=== PATIENT | male | born 1950 | race Caucasian/White ===

== ENCOUNTER → 2017-06-20 | Outpatient (REF) ==
--- NOTE | 2017-06-20 11:59 | REP ---
Chest x-ray: Two views. History: Shortness of breath. COPD. Comparison chest x-ray February 17, 2014. Findings: The lungs are well inflated and remain clear. Pleural angles are sharp. Heart is not enlarged. Aorta is calcific. Pulmonary vasculature is not increased. Left hemidiaphragm remains slightly elevated. There is diffuse osteopenia and mild anterior thoracic vertebral body wedging is seen at three vertebral body levels unchanged. Impression: No active cardiopulmonary disease seen. Signed by Ezra Nichols MD 06/20/2017 12:11 P
== END ==
LOC: M RAD 10:30
PROVIDERS: ATTEND Family Medicine
DX: R06.02 Shortness of breath (principal); J44.9 Chronic obstructive pulmonary disease, unspecified

== ENCOUNTER 2019-04-25 13:47 | Emergency (ER) | payer MEDICARE, OTHER ==
[~2019-04-25] VITALS: Ht 180.3 cm; Wt 91.2 kg
[2019-04-25] MEDS ORDERED: ATOR1TAB21 PO (13:58)
[2019-04-25] MEDS ORDERED: CARD120T4 PO (13:58)
[2019-04-25] MEDS ORDERED: METO200T28 PO (13:58)
[2019-04-25] MEDS ORDERED: DIPH25CA32 PO (14:18)
[2019-04-25] MEDS ORDERED: CLAR10CA3 PO (14:18)
[2019-04-25] MEDS ORDERED: PROAAER10 INH (14:18)
[2019-04-25] MEDS ORDERED: LISI40TA PO (14:18)
[2019-04-25] MEDS ORDERED: FUROSEMIDE 40 MG/4 ML VIAL (J1940) IV ONE (15:15)
[2019-04-25 15:23] LABS: BASO % 0.4 % (0.0-1.0); EOS # 0.5 10^3/uL (0.0-0.50); EOS % 4.4 % (0.0-3.0); HEMOGLOBIN 12.3 g/dl (13.5-17.5); LYMPH # 1.1 10^3/uL (1.5-4.5); LYMPH % 10.2 % (24.0-44.0); MEAN CORPUSCULAR HEMOGLOBIN 31.8 pg (27.0-33.0); MEAN CORPUSCULAR HGB CONC 34.2 g/dl (32.0-36.5); MONO # 1.6 10^3/uL (0.0-0.8); MONO % 14.8 % (0.0-5.0); NEUTROPHILS # 7.6 10^3/uL (1.8-7.7); NEUTROPHILS % 69.5 % (36.0-66.0); PLATELET COUNT, AUTOMATED 388 10^3/uL (150-450); RED BLOOD COUNT 3.87 10^6/uL (4.30-6.10); WHITE BLOOD COUNT 10.9 10^3/uL (4.0-10.0)
[2019-04-25 15:26] LABS: ALBUMIN 3.8 GM/DL (3.2-5.2); ALT/SGPT 22 U/L (12-78); BILIRUBIN,DIRECT 0.2 MG/DL (0.0-0.2); BILIRUBIN,TOTAL 0.4 MG/DL (0.2-1.0); BLOOD UREA NITROGEN 6 MG/DL (7-18); CALCIUM LEVEL 9.4 MG/DL (8.8-10.2); CARBON DIOXIDE LEVEL 29 MEQ/L (21-32); CHLORIDE LEVEL 88 MEQ/L (98-107); CK-MB VALUE MASS 4.9 NG/ML (<3.6); CPK CREATINE PHOSPHOKINASE 124 U/L (39-308); CREATININE FOR GFR 0.88 MG/DL (0.70-1.30); GLOMERULAR FILTRATION RATE > 60.0 (>49); GLUCOSE, FASTING 97 MG/DL (70-100); LIPASE 107 U/L (73-393); MB/CK RELATIVE INDEX 3.95 (< OR =4); NT-PRO BNP 477 PG/ML (<125); POTASSIUM SERUM 4.2 MEQ/L (3.5-5.1); SODIUM LEVEL 126 MEQ/L (136-145); TOTAL PROTEIN 6.9 GM/DL (6.4-8.2); TROPONIN I < 0.02 NG/ML (< 0.10)
[2019-04-25 15:29] LABS: PARTIAL THROMBOPLASTIN TIME 33.4 SECONDS (25.0-38.4)
[2019-04-25 15:36] LABS: INR 1.14; PROTHROMBIN TIME 14.3 SECONDS (11.8-14.0)
--- NOTE | 2019-04-25 16:08 | REP ---
Portable chest, 03:49 p.m., single AP view with the patient upright: Comparison is 06/20/2017. The lung saucedo are hyperinflated, as previously. There are no infiltrates or pleural effusions. There are no masses or nodules. The lung saucedo are clear and unchanged. Cardiac size is normal. The carlitos, mediastinum, skeletal structures are unremarkable. Impression: Negative portable chest. Electronically Signed by Tyshawn Reddy MD 04/25/2019 03:59 P
[2019-04-25] MEDS ORDERED: LABETALOL HCL 100 MG/20 ML VIAL IV STA (16:30)
--- NOTE | 2019-04-25 16:55 | REP ---
Bilateral lower extremity Duplex Doppler venous ultrasound: Real time compression and duplex Doppler interrogation of the bilateral lower extremity deep venous system is performed. Bilaterally, the common femoral, superficial femoral and popliteal veins are fully compressible with transducer pressure and demonstrate normal spontaneous and phasic flow, without evidence of deep venous thrombosis. Impression: No evidence of deep venous thrombosis of the bilateral lower extremity femoral popliteal venous system. Note is made of a left popliteal cyst 5.0 x 4.6 x 1.2 cm. Electronically Signed by Tyshawn Gunderson MD 04/25/2019 04:46 P
[2019-04-25] MEDS ORDERED: HYDR12.55 PO (17:39)
[2019-04-25 17:46] VITALS: BP 166/76
--- NOTE | 2019-04-26 09:34 | ECGEPIP ---
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
== END 2019-04-25 18:09 | disposition home or self-care (01) ==
LOC: M ED 13:47
DX: R60.0 Localized edema (principal); I45.10 Unspecified right bundle-branch block; I10 Essential (primary) hypertension; E78.5 Hyperlipidemia, unspecified; Z79.899 Other long term (current) drug therapy; Z87.891 Personal history of nicotine dependence
CPT/HCPCS: 36415; 71045; 80048; 80076; 82550; 82553; 83690; 83880; 84484; 85025; 85610; 85730; 93005; 93041; 93970; 94760; 96374; 96375; 99285; J1940

== ENCOUNTER 2020-02-28 15:53 | Inpatient (IN) | payer OTHER, MEDICARE ==
[2020-02-28] VITALS (12 sets, daily range): BP systolic 72–168; BP diastolic 47–82
[~2020-02-28] VITALS: Ht 160 cm; Wt 78.3 kg
[~2020-02-28 15:53] MED LIST: ATOR1TAB21 PO; CARD120T4 PO; CLAR10CA3 PO; DIPH25CA32 PO; HYDR12.55 PO; LISI40TA PO; METO200T28 PO; PROAAER10 INH
[2020-02-28] MEDS ORDERED: HYDR12.55 PO (19:16)
[2020-02-28] MEDS ORDERED: ATOR1TAB21 PO (19:16)
[2020-02-28] MEDS ORDERED: SYMB16INH INH (19:17)
[2020-02-28] MEDS ORDERED: BENA25CA4 PO (19:21)
[2020-02-28] MEDS ORDERED: CARD360C PO (19:21)
[2020-02-28] MEDS ORDERED: LORA-622 PO (19:21)
[2020-02-28 19:24] LABS: HEMATOCRIT 31.7 % (42.0-52.0); HEMOGLOBIN 11.5 g/dl (13.5-17.5); MEAN CORPUSCULAR HEMOGLOBIN 32.2 pg (27.0-33.0); MEAN CORPUSCULAR HGB CONC 36.3 g/dl (32.0-36.5); MEAN CORPUSCULAR VOLUME 88.8 fl (80.0-96.0); PLATELET COUNT, AUTOMATED 336 10^3/uL (150-450); RED BLOOD COUNT 3.57 10^6/uL (4.30-6.10); WHITE BLOOD COUNT 13.9 10^3/uL (4.0-10.0)
[2020-02-28] MEDS ORDERED: LORazepam 2 MG/ML VIAL (J2060) IV STA (19:45)
[2020-02-28] MEDS ORDERED: LORazepam 2 MG/ML VIAL (J2060) As Ordered ONE (19:49)
[2020-02-28] MEDS ORDERED: ACETAMINOPHEN TAB 650MG DOSE (2X325MG) PO PRN (20:00)
[2020-02-28] MEDS ORDERED: KCL 10MEQ/100ML SWI (KRUN) 10 MEQ in IV 1 EA IV SCH (20:00)
[2020-02-28 20:10] LABS: ALBUMIN 3.3 GM/DL (3.2-5.2); BILIRUBIN,TOTAL 0.7 MG/DL (0.2-1.0); CALCIUM LEVEL 8.9 MG/DL (8.8-10.2); CREATININE FOR GFR 1.73 MG/DL (0.70-1.30); GLOMERULAR FILTRATION RATE 42.2 (>49); POTASSIUM SERUM 3.1 MEQ/L (3.5-5.1); THYROID STIMULATING HORMONE 0.404 uIU/ML (0.358-3.740); TOTAL PROTEIN 6.3 GM/DL (6.4-8.2); URIC ACID 6.6 MG/DL (3.5-7.2)
[2020-02-28] MEDS ORDERED: LORazepam 2 MG TAB PO PRN (20:15)
[2020-02-28] MEDS ORDERED: IPRATROPIUM 0.5MG/ALBUTEROL 2.5MG INH SOL UD 3ML (DUONEB)(J7620) NEB PRN (20:15)
[2020-02-28] MEDS ORDERED: LORazepam 2 MG/ML VIAL (J2060) IV PRN (20:15)
[2020-02-28] MEDS ORDERED: NS 1,000 ML IV SCH (20:15)
--- NOTE | 2020-02-28 20:30 | REPVR ---
PROCEDURE INFORMATION: Exam: US Duplex Lower Extremity Veins, Bilateral Exam date and time: 02/28/2020 8:24 PM Age: 69 years old Clinical indication: Edema, localized; Lower extremity, bilateral; Additional info: Bilat pedal edema TECHNIQUE: Imaging protocol: Real-time duplex ultrasound of the extremities with 2-D miller scale, color Doppler flow and spectral waveform analysis with image documentation. Complete exam focused on the bilateral lower extremity veins. COMPARISON: US Duplex, Ext LOWER veins, bilat 04/25/2019 4:00 PM FINDINGS: Right deep veins: Unremarkable. The common femoral, femoral, proximal profunda femoral and popliteal veins are patent without thrombus. Normal Doppler waveforms. Normal compressibility and/or augmentation response. Right superficial veins: Saphenofemoral junction is patent without thrombus. Left deep veins: Unremarkable. The common femoral, femoral, proximal profunda femoral and popliteal veins are patent without thrombus. Normal Doppler waveforms. Normal compressibility and/or augmentation response. Left superficial veins: Saphenofemoral junction is patent without thrombus. Soft tissues: Dissecting popliteal fossa cyst measures 9.1 x 1.3 x 2.3 cm. IMPRESSION: Dissecting popliteal fossa cyst measures 9.1 x 1.3 x 2.3 cm. No DVT. The Electronically signed by: Eric Reed On 02/28/2020 20:30:10 PM
--- NOTE | 2020-02-28 20:39 | HPEPDOC ---
General Date of Admission February 28, 2020 at 18:10 Date of Service: February 28, 2020 Chief Complaint The patient is a 69-year-old male admitted with a reason for visit of Hyponatremia,Pneumonia. Source: RN/MD, EMS, RN notes reviewed, Other ([facility] records) Timing/Duration: Other (2 weeks) Severity: Other (, not applicable) Associated Symptoms: Other History of Present Illness 69 years old white male who lives alone, has a past medical history of COPD and hypertension. Last time was seen by his PCP in March 2019. Her bilateral leg swelling, not followed up with PCP since then, was brought in to ED at [facility] by by his son with chief complaint of altered mental status, which is progressively getting worse since last 2 weeks. I'm unable to get good history from patient as he is confused, history was obtained from RN medical records from [facility] in reviewing his old medical records available in our EMR. Home Medications Scheduled Atorvastatin Calcium (Atorvastatin Calcium) 20 Mg Tablet, 20 MG PO QHS, (Reported) Budesonide/Formoterol (Symbicort 160-4.5 Mcg Inhaler) 6 Gm Hfa.aer.ad, 2 PUFF INH BID, (Reported) Diltiazem Hcl (Cardizem Cd) 360 Mg Cap.er.24h, 360 MG PO DAILY, (Reported) Diphenhydramine HCl (Benadryl) 25 Mg Capsule, 25 MG PO ASDIRECTED, (Reported) Hydrochlorothiazide (Hydrochlorothiazide) 12.5 Mg Tablet, 12.5 MG PO DAILY, (Reported) Lisinopril (Lisinopril) 40 Mg Tablet, 40 MG PO DAILY, (Reported) Loratadine (Loratadine) 10 Mg Tablet, 10 MG PO DAILY, (Reported) Metoprolol Succinate (Metoprolol Succinate) 200 Mg Tab.er.24h, 200 MG PO DAILY, (Reported) Scheduled PRN Albuterol Sulfate (Proair Hfa) 8.5 Gm Hfa.aer.ad, 2 PUFF INH Q4-6HP PRN for whe ezing, (Reported) Allergies Coded Allergies: latex (Verified Allergy, Unknown, 02/28/20) Past Medical History Medical History COPD, hypertension, bipedal edema Surgical History None available Family History Unable to obtained. Family history. Secondary to his mental status Social History * Smoker: former Smoker Alcohol: other (. History of regular alcohol use ) Drugs: other (, on no) A-FIB/CHADSVASC A-FIB History Current/History of A-Fib/PAF?: No Review of Systems Constitutional: Reports: Other (unable to obtained review of systems secondary to patient's confusion and altered mentation) Physical Examination General Exam: Positive: Other (, awake response to some questions", but has echolalia" just say yes") Eye Exam: Positive: Conjunctiva & lids normal, Other Eye Symptoms (dilated bilaterally. Pupils) ENT Exam: Positive: Atraumatic, Mucous membr. moist/pink Neck Exam: Positive: Supple Chest Exam: Positive: Clear to auscultation, Normal air movement, Other (rales, rhonchi, wheezing) Heart Exam: Positive: Rate Normal, Normal S1, Normal S2 Abdomen Exam: Positive: Normal bowel sounds, Soft Extremity Exam: Positive: Other (bilateral pedal edema) Skin Exam: Positive: Other skin issue (, cold, but not clammy) Neuro Exam: Positive: Other (. Moves all extremities) Psych Exam: Positive: Other (. Unable to examine) Vital Signs Vital Signs Date Time Temp Pulse Resp B/P (MAP) Pulse Ox O2 Delivery O2 Flow Rate FiO2 02/28/20 18:30 96.7 91 18 168/82 (110) 96 Room Air Laboratory Data Labs 24H Laboratory Tests 2 02/28/20 18:51: Coronavirus (COVID-19)(PCR) NEGATIVE 02/28/20 19:05: 02/28/20 19:15: Nucleated Red Blood Cells % (auto) 0.0, Lactic Acid Level 1.8 CBC/BMP Laboratory Tests 02/28/20 19:15 Microbiology Microbiology 02/28/20 Blood Culture, Received Pending 02/28/20 Blood Culture, Received Pending 02/28/20 Respiratory Virus Panel (PCR) ([facility]), Received Pending Problems (1) Metabolic encephalopathy Status: Acute Problem Text: 69 years old white male who is pleasantly confused, was transferred from [facility] with altered mental status. Altered mental status secondary to metabolic encephalopathy, most likely secondary to hyponatremia and possibly alcohol withdrawal. Patient has been admitted to intensive care unit for further care Will start patient on normal saline at 70 mL per hour to gently raise sodium levels to 10 mEq and first 24 hours Nephrology consult with Dr. Bess also has been requested for further recommendations I will also hold patient's hydrochlorothiazide, ERIK inhibitor and calcium channel blockers Catherine catheter placed in for accurate intake and output measurement Patient had a CT of the head done at [facility], which was essentially showed age-related changes Bed rest Nothing by mouth except meds and sips of water DVT prophylaxis with heparin BMP every 6 hours (2) Hyponatremia Status: Acute Problem Text: Patient's etiology of the hyponatremia is unclear but most likely secondary to diuretics and possibly alcohol abuse Repeat his sodium level has been ordered and awaiting reports also repeat potassium level has been ordered and awaiting report Normal saline at 70 mL per hour Nothing by mouth except meds and water sips until his mental status is acceptable Nephrology consult has been called and awaiting further recommendations (3) Alcohol withdrawal delirium Status: Acute Problem Text: Questionable history of alcohol abuse [place] patient directly asked, he is unable to give me an answer . His alcohol level VIII [facility] was 0, so most likely he is going through withdrawal at the present time Ativan 2 mg IV stat. Given CIWA protocol has been ordered Ativan 1 mg IV every 4 hours when necessary for agitation IV fluids as per orders Time and folic acid as per orders Possibly will need a social work intervention when she is medically stable for discharge planning (4) Edema of both lower extremities Status: Chronic Problem Text: History of bilateral lower extremity edema since last 1 year . He saw his PCP in March 2019 had a venous Dopplers done which were negative for DVT but no other intervention was performed , Most likely bipedal edema secondary to chronic use of calcium channel blockers. Cardizem has been DC'd and I will repeat bilateral venous Dopplers to rule out D VT Again Echocardiogram has been ordered to assess cardiac structures and ejection fraction DVT prophylaxis with heparin right now (5) Atypical pneumonia Status: Acute Problem Text: Patient was diagnosed with atypical pneumonia at [facility] where he received Rocephin and Zithromax and he was started on Zosyn at [facility] After physical examination. In reviewing his labs from [facility] is very unlikely that patient has an active infection Chest x-ray at [facility] showed most likely atelectasis. His lungs are clear. He is afebrile and WBC count was within normal range . I will hold his IV antibiotics and repeat chest x-ray again as well as order pro calcitonin, if any, pneumonia, noted, will restart him on IV antibiotics. DuoNeb every 2-4 hours when necessary and oxygen support as needed (6) COPD (chronic obstructive pulmonary disease) Status: Chronic Problem Text: Stable, not decompensated DuoNeb as per orders (7) HTN (hypertension) Status: Chronic Problem Text: Will DC patient's calcium channel blockers, ERIK inhibitor and diuretics Will change beta blockers to Lopressor 5 mg IV every 6 hours for blood pressure control to patient's mental status is acceptable Will also avoid diuretics such as hydrochlorothiazide and ERIK inhibitor such as lisinopril due to electrolyte abnormalities Also would avoid calcium channel blockers such as Cardizem secondary to bipedal edema Continue beta blockers and will switch him back to by mouth once his mentation is acceptable (8) Elevated LFTs Status: Acute Problem Text: AST is 3 times higher than ALT, most likely alcohol in liver i njury . His abdomen is benign on clinical examination, and his ammonia was within normal limits done at [facility] Will get abdominal sonogram to further assess the hepatic anatomy Plan / VTE VTE Prophylaxis Ordered?: Yes LULI BLAIR MD February 28, 2020 20:39
[2020-02-28] MEDS: PIPERACILLIN/TAZOBACTAM SOD 4.5 GM in D5W MINI-BAG PLUS 50 ML IV SCH (20:46)
[2020-02-28] MEDS: ATORVASTATIN 20 MG TAB PO SCH (20:47)
[2020-02-28] MEDS: METOPROLOL 5 MG/5 ML VIAL IV SCH (20:51)
[2020-02-28] MEDS: HEPARIN SOD (PORCINE) 5000UNITS/ML VIAL (J1644 PER 1000UNITS) SC SCH (20:51)
[2020-02-28] MEDS: THIAMINE 100 MG TAB PO SCH (20:52)
[2020-02-28] MEDS: KCL 40MEQ in NS 1000ML 1,000 ML IV SCH (21:25)
[2020-02-28 22:06] LABS: POTASSIUM RANDOM URINE 26.9 MEQ/L
[2020-02-29] VITALS (16 sets, daily range): BP systolic 90–146; BP diastolic 44–78
[2020-02-29 02:41] LABS: CALCIUM LEVEL 8.5 MG/DL (8.8-10.2); CREATININE FOR GFR 1.55 MG/DL (0.70-1.30); GLOMERULAR FILTRATION RATE 47.8 (>49); POTASSIUM SERUM 3.2 MEQ/L (3.5-5.1)
[2020-02-29] MEDS: PIPERACILLIN/TAZOBACTAM SOD 4.5 GM in D5W MINI-BAG PLUS 50 ML IV SCH ×4 (02:43→20:24)
[2020-02-29] MEDS: METOPROLOL 5 MG/5 ML VIAL IV SCH ×4 (02:43→20:30)
[2020-02-29] MEDS ORDERED: KCL 10MEQ/100ML SWI (KRUN) 10 MEQ in IV 1 EA IV ONE ×3 (03:45→20:00)
[2020-02-29 04:48] LABS: ABG BASE EXCESS 1.5 (-2.0-2.0); ABG HCO3 27.2 MEQ/L (22.0-26.0); ABG O2 SATURATION 98.8 % (95.0-99.0); ABG PARTIAL PRESSURE CO2 47.5 mmHg (35.0-45.0); ABG PARTIAL PRESSURE O2 132.2 mmHg (75.0-100.0); ABG STANDARD HCO3 25.9 MEQ/L (22.0-26.0); ABG TOTAL CO2 28.6 MEQ/L (23.0-31.0); ABG pH (ARTERIAL) 7.375 UNITS (7.350-7.450)
[2020-02-29] MEDS: SYMBICORT 160/4.5MCG INHALER 6GM INH SCH ×3 (06:48→20:00)
[2020-02-29 07:24] LABS: BASO % 0.3 % (0.0-1.0); EOS # 0.2 10^3/uL (0.0-0.5); EOS % 1.7 % (0.0-3.0); HEMOGLOBIN 10.5 g/dl (13.5-17.5); LYMPH # 0.7 10^3/uL (1.5-5.0); LYMPH % 7.4 % (24.0-44.0); MEAN CORPUSCULAR HEMOGLOBIN 32.5 pg (27.0-33.0); MEAN CORPUSCULAR HGB CONC 36.2 g/dl (32.0-36.5); MEAN CORPUSCULAR VOLUME 89.8 fl (80.0-96.0); MONO # 1.5 10^3/uL (0.0-0.8); MONO % 16.3 % (0.0-5.0); NEUTROPHILS # 6.6 10^3/uL (1.5-8.5); NEUTROPHILS % 72.9 % (36.0-66.0); PLATELET COUNT, AUTOMATED 295 10^3/uL (150-450); RED BLOOD COUNT 3.23 10^6/uL (4.30-6.10)
[2020-02-29 08:01] LABS: BILIRUBIN,TOTAL 0.7 MG/DL (0.2-1.0); CALCIUM LEVEL 8.8 MG/DL (8.8-10.2); CREATININE FOR GFR 1.5 MG/DL (0.70-1.30); GLOMERULAR FILTRATION RATE 49.7 (>49); MAGNESIUM LEVEL 1.9 MG/DL (1.8-2.4); POTASSIUM SERUM 3.4 MEQ/L (3.5-5.1); TOTAL PROTEIN 5.8 GM/DL (6.4-8.2)
[2020-02-29] MEDS: FOLIC ACID 1 MG TAB PO SCH (08:54)
[2020-02-29] MEDS: MULTIVITAMINS/MINERALS THERAP 1 TAB PO SCH (08:54)
[2020-02-29] MEDS: THIAMINE 100 MG TAB PO SCH ×2 (08:54→21:56)
[2020-02-29] MEDS: PANTOPRAZOLE 40MG TAB (PROTONIX) PO SCH (08:59)
[2020-02-29] MEDS ORDERED: METOPROLOL SUCC (TopROL XL) 100MG *XL* TAB PO SCH (09:00)
[2020-02-29] MEDS: HEPARIN SOD (PORCINE) 5000UNITS/ML VIAL (J1644 PER 1000UNITS) SC SCH ×2 (09:02→21:56)
--- NOTE | 2020-02-29 09:31 | REP ---
CHEST: Single view. There is no evidence of acute infiltrate. No pleural effusion is seen. The heart is normal in size. The mediastinal silhouette is unremarkable. The visualized osseous structures are intact. IMPRESSION: No acute pulmonary disease. Electronically Signed by Tyshawn Gunderson MD 02/29/2020 10:24 A
[2020-02-29 09:43] LABS: POTASSIUM RANDOM URINE 13.5 MEQ/L
--- NOTE | 2020-02-29 11:50 | IPNPDOC ---
Text Note Date of Service The patient was seen on 02/29/20. NOTE Subjective: Patient is lethargic in the morning. Not follows commands Objective: VITAL SIGNS: Please see below. GENERAL: lethargic HEENT: NCAT, anicteric sclera, ASHER NECK: supple, no JVD CARDIOVASCULAR EXAMINATION: S1S2, regular rate/rhythm RESPIRATORY EXAMINATION: CTA b/l, no wheezes/rales/rhonchi ABDOMINAL EXAMINATION: positive bowel sounds x 4, NT EXTREMITIES: +2 edema of lower extremities SKIN: warm, no rashes. NEUROLOGICAL EXAMINATION: reflexes intact, no nuchal rigidity Assessment and plan: Patient is 69 years old female with past history of COPD, hypertension, alcohol abuse who was admitted to the hospital with metabolic encephalopathy. Patient was found to have symptomatic hyponatremia. Metabolic encephalopathy Most likely secondary to hyponatremia, unknown etiology for now CT head negative Hyponatremia Unknown etiology Differential diagnosis includes SIADH, psychogenic polydipsia, endocrinopathies, CHF or renal failure We will check urine lites, urine osmolality Nephrology team follows patient Alcohol withdrawal Continue CIWA Edema of both extremities Echo ordered DVT of lower extremities negative Chest x-ray showed did not show cardiomegaly Will check BNP Hypertension Blood pressures under control Continue home meds Transaminitis AST>ALT most likely due to alcohol abuse Ultrasound of the liver ordered Continue to monitor VS,Fishbone, I+O VS, Fishbone, I+O Laboratory Tests 02/28/20 19:15 02/29/20 01:54 02/29/20 07:09 Vital Signs Date Time Temp Pulse Resp B/P (MAP) Pulse Ox O2 Delivery O2 Flow Rate FiO2 02/29/20 09:03 77 136/64 02/29/20 08:00 97.3 14 100 Nasal Cannula 2.0 I&O- Last 24 Hours up to 6 AM 02/29/20 06:00 Intake Total 760 ml Output Total 960 ml Balance -200 ml JAMES PIZANO DO February 29, 2020 11:50
[2020-02-29 14:52] LABS: CALCIUM LEVEL 8.4 MG/DL (8.8-10.2); CREATININE FOR GFR 1.38 MG/DL (0.70-1.30); GLOMERULAR FILTRATION RATE 54.7 (>49); POTASSIUM SERUM 3.3 MEQ/L (3.5-5.1)
[2020-02-29] MEDS: KCL 40MEQ in NS 1000ML 1,000 ML IV SCH (15:04)
--- NOTE | 2020-02-29 21:21 | REPVR ---
PROCEDURE INFORMATION: Exam: CT Head Without Contrast Exam date and time: 02/29/2020 9:04 PM Age: 69 years old Clinical indication: Weakness, facial; Additional info: Left facial droop TECHNIQUE: Imaging protocol: Computed tomography of the head without contrast. Radiation optimization: All CT scans at this facility use at least one of these dose optimization techniques: automated exposure control; mA and/or kV adjustment per patient size (includes targeted exams where dose is matched to clinical indication); or iterative reconstruction. Other technique: STROKE PROTOCOL was implemented. COMPARISON: No relevant prior studies available. FINDINGS: Brain: Mild nonspecific hypodensities of the periventricular and deep subcortical white matter, most likely secondary to chronic small vessel ischemic change. No intracranial hemorrhage or extra-axial fluid collection. No evidence of mass effect or midline shift. Gunderson-white matter differentiation is normal. Ventricles: Mild prominence of the ventricles and sulci, most likely attributed to parenchymal volume loss. Bones/joints: No acute osseus lesion or fracture. Sinuses: Unremarkable as visualized. Mastoid air cells: Unremarkable. Soft tissues: Unremarkable. IMPRESSION: 1. No acute intracranial pathology. ASPECTS score 10. 2. Other chronic findings, as above. Electronically signed by: Chaz Joshi On 02/29/2020 21:21:44 PM
[2020-02-29 21:47] LABS: ALBUMIN 2.8 GM/DL (3.2-5.2); CALCIUM LEVEL 8.7 MG/DL (8.8-10.2); CREATININE FOR GFR 1.28 MG/DL (0.70-1.30); CREATININE FOR GFR 1.36 MG/DL (0.70-1.30); GLOMERULAR FILTRATION RATE 55.6 (>49); GLOMERULAR FILTRATION RATE 59.7 (>49); PHOSPHORUS LEVEL 1.9 MG/DL (2.5-4.9); POTASSIUM SERUM 3.5 MEQ/L (3.5-5.1); POTASSIUM SERUM 3.6 MEQ/L (3.5-5.1)
[2020-02-29] MEDS: NYSTATIN 100,000 UNITS/GM TOPICAL PWD 15 GM TOP SCH (21:56)
[2020-02-29] MEDS: ATORVASTATIN 20 MG TAB PO SCH (21:56)
[2020-02-29] MEDS ORDERED: KCL 20MEQ IN 0.45NS 1000ML 1,000 ML IV SCH (22:00)
--- NOTE | 2020-02-29 23:05 | REP ---
RIGHT UPPER QUADRANT ULTRASOUND: Real-time sonographic evaluation of right upper quadrant performed. Gallbladder demonstrates mild sludge. Gallbladder wall is upper limits of normal in thickness. It measures 4 mm. There is no intrahepatic or extrahepatic biliary dilatation, common bile duct measuring 4 mm. The liver has heterogeneous echotexture with no gross mass. No gross mass is seen in the pancreas, which is not well seen due to overlying bowel gas. Right kidney demonstrates no hydronephrosis with normal size, 11.0 cm in length. No free fluid is seen. IMPRESSION: Heterogeneous echotexture of the liver. No liver mass is seen. No biliary dilatation. Mild gallbladder sludge. Electronically Signed by Tyshawn Gunderson MD 03/01/2020 01:13 P
[2020-03-01] VITALS (10 sets, daily range): BP systolic 127–142; BP diastolic 68–79
[2020-03-01] MEDS: PIPERACILLIN/TAZOBACTAM SOD 4.5 GM in D5W MINI-BAG PLUS 50 ML IV SCH (01:43)
[2020-03-01 02:27] LABS: BLOOD UREA NITROGEN 19 MG/DL (7-18); CALCIUM LEVEL 8.7 MG/DL (8.8-10.2); CARBON DIOXIDE LEVEL 30 MEQ/L (21-32); CHLORIDE LEVEL 85 MEQ/L (98-107); CREATININE FOR GFR 1.17 MG/DL (0.70-1.30); GLOMERULAR FILTRATION RATE > 60.0 (>49); GLUCOSE, FASTING 92 MG/DL (70-100); POTASSIUM SERUM 3.6 MEQ/L (3.5-5.1); SODIUM LEVEL 125 MEQ/L (136-145)
[2020-03-01] MEDS: METOPROLOL 5 MG/5 ML VIAL IV SCH ×4 (03:00→20:27)
[2020-03-01] MEDS: SYMBICORT 160/4.5MCG INHALER 6GM INH SCH ×2 (07:13→19:24)
[2020-03-01 08:22] LABS: BASO # 0.1 10^3/uL (0.0-0.2); BASO % 0.9 % (0.0-1.0); EOS # 0.7 10^3/uL (0.0-0.5); EOS % 7.1 % (0.0-3.0); HEMATOCRIT 30.7 % (42.0-52.0); HEMOGLOBIN 10.7 g/dl (13.5-17.5); LYMPH # 0.9 10^3/uL (1.5-5.0); LYMPH % 8.2 % (24.0-44.0); MEAN CORPUSCULAR HEMOGLOBIN 32.5 pg (27.0-33.0); MEAN CORPUSCULAR HGB CONC 34.9 g/dl (32.0-36.5); MEAN CORPUSCULAR VOLUME 93.3 fl (80.0-96.0); MONO # 1.7 10^3/uL (0.0-0.8); MONO % 16.5 % (0.0-5.0); NEUTROPHILS # 6.9 10^3/uL (1.5-8.5); NEUTROPHILS % 65.8 % (36.0-66.0); PLATELET COUNT, AUTOMATED 305 10^3/uL (150-450); RED BLOOD COUNT 3.29 10^6/uL (4.30-6.10); WHITE BLOOD COUNT 10.5 10^3/uL (4.0-10.0)
[2020-03-01 08:49] LABS: BLOOD UREA NITROGEN 17 MG/DL (7-18); CARBON DIOXIDE LEVEL 31 MEQ/L (21-32); CHLORIDE LEVEL 85 MEQ/L (98-107); CREATININE FOR GFR 0.97 MG/DL (0.70-1.30); GLOMERULAR FILTRATION RATE > 60.0 (>49); GLUCOSE, FASTING 97 MG/DL (70-100); POTASSIUM SERUM 3.8 MEQ/L (3.5-5.1); SODIUM LEVEL 124 MEQ/L (136-145)
[2020-03-01] MEDS: NYSTATIN 100,000 UNITS/GM TOPICAL PWD 15 GM TOP SCH ×2 (09:26→20:29)
[2020-03-01] MEDS: KCL 20MEQ in NS 1000ML 1,000 ML IV SCH ×2 (09:26→20:29)
[2020-03-01] MEDS: HEPARIN SOD (PORCINE) 5000UNITS/ML VIAL (J1644 PER 1000UNITS) SC SCH ×2 (09:26→20:28)
[2020-03-01] MEDS: FOLIC ACID 1 MG TAB PO SCH (09:27)
[2020-03-01] MEDS: THIAMINE 100 MG TAB PO SCH ×2 (09:27→20:28)
[2020-03-01] MEDS: PANTOPRAZOLE 40MG TAB (PROTONIX) PO SCH (09:27)
[2020-03-01] MEDS: MULTIVITAMINS/MINERALS THERAP 1 TAB PO SCH (09:27)
[2020-03-01 10:39] LABS: CORTISOL AM 33.1 UG/DL (4.3-22.4)
--- NOTE | 2020-03-01 13:00 | CR ---
DATE OF CONSULTATION: 02/29/2020 REASON FOR CONSULTATION: Hyponatremia and acute renal failure. NOTE: Consult was requested last evening and I did manage his electrolytes through the night. Patient is seen this morning in intensive care unit. HISTORY OF PRESENT ILLNESS: Mr. Yu is a 69-year-old gentleman who was transferred to [facility] last evening due to severe hyponatremia and pneumonia. He had altered mentation at the time of admission. He has known history of hypertension and chronic obstructive pulmonary disease (COPD) in addition to hyperlipidemia. He had altered mentation last night. His sodium level was reported at 111 at [facility] prior to transfer. A repeat sodium at [facility] was 114. PAST MEDICAL AND SURGICAL HISTORY (significant for): 1. Hypertension. 2. COPD. 3. Hyperlipidemia. 4. Chronic lower extremity edema. MEDICATIONS: Home medications include: - atorvastatin 20 mg daily - Symbicort inhaler two puffs twice a day - diltiazem 360 mg daily - Benadryl 25 mg as needed - hydrochlorothiazide 12.5 mg daily - lisinopril 40 mg daily - loratadine 10 mg as needed - metoprolol 200 mg daily - He also uses albuterol as needed ALLERGIES: Patient has allergy to LATEX. PERSONAL AND SOCIAL HISTORY: Patient is a former smoker, who denies any intravenous drug use, but does have history of alcohol use. FAMILY HISTORY: Noncontributory. REVIEW OF SYSTEMS: Patient is not a great historian, though he is able to answer simple questions this morning. Apparently, he was not feeling well for couple of days prior to admission. He denies any fever or chills. Ears, nose, and throat are unremarkable. Cardiovascular system is significant for hypertension and leg edema. Respiratory system is significant for pneumonia. Patient denies any hemoptysis. He also has history of COPD. Gastrointestinal (GI) system is negative for diarrhea or vomiting. He is currently nothing by mouth. Genitourinary () system is significant for chronic kidney disease. Patient has a Catherine catheter placed. Musculoskeletal system significant for chronic leg edema and degenerative arthritis. Skin is significant for cyanosis on his hand. No ulcers or rash noted. Neurologically, he was altered last evening but seems to be improving today. No focal deficit noted. Hematological system is negative for any chronic anticoagulation. Psychosocial system negative for depression or anxiety. PHYSICAL EXAMINATION: Elderly gentleman lying in the bed without any acute distress. Temperature 97.3 degrees Fahrenheit, heart rate 80 per minute and respiratory rate 14 per minute. Blood pressure 136/64 mmHg and oxygen saturation 100% on 2 liters oxygen. Head is atraumatic. Neck: Supple and jugular venous distention (JVD) abnormally elevated. Oral mucosa is dry and without any thrush or ulcers. Heart sounds are regular and lungs sound slightly diminished with poor inspiratory effort. No wheezing or rales audible. Abdomen: Soft and nontender. Bowel sounds are normal. Extremities with mild cyanosis of right hand. No clubbing noted. There is no peripheral edema noted. Neurologically, he is awake and able to answer simple questions, but not able to give any detailed information as yet. He was quite agitated and altered last evening and was given a dose of Ativan 2 mg. LABORATORY DATA: On admission, WBC count was 13.9, hemoglobin 11.5 and hematocrit 31.7. This morning WBC count 9.0, hemoglobin 10.5 and hematocrit 29.0. His sodium reported as at [facility] was 111, and initial sodium here last evening was 114 and potassium 3.1. BUN 33 and creatinine 1.73. AST 669, ALT 211 and albumin 3.3. At 1:54 a.m., sodium was 118, potassium 3.2, chloride 75, CO2 28, BUN 31 and creatinine 1.55. Most recent chemistry showed sodium 115, potassium 3.4, CO2 29, chloride 77, BUN 29 and creatinine 1.50. AST is down to 467, ALT 179 and alkaline phosphatase 97. Bilirubin is 0.7. PROBLEMS: 1. Severe hyponatremia. Most likely he has chronic hyponatremia at baseline. He was on hydrochlorothiazide at home and also has history of COPD and now being treated with pneumonia. I feel that his hyponatremia is probably related to hydrochlorothiazide and pneumonia with COPD. We will continue with IV normal saline for now and recheck his chemistry in a few hours. His sodium level was up to 118, after which, he was given one potassium run and sodium did come down to 115. We will see how his next sodium level is and then make adjustments as needed. I will hold off on hypertonic saline at present. 2. Hypokalemia. Potassium level is gradually improving and we will continue with 40 mEq potassium chloride in each liter of normal saline. 3. Acute renal failure most likely related to pneumonia and possible dehydration. Kidney function is slowly improving with IV fluid and we will continue with the same. 4. Anemia. He probably has chronic anemia, which has now worsened due to acute pneumonia and renal failure. It remains to be seen how further improvement he makes over next day or two. Thank you for involving me in the care of Mr. Mackey. I will follow him along with you.
--- NOTE | 2020-03-01 13:30 | IPNPDOC ---
Text Note Date of Service The patient was seen on 03/01/20. NOTE Subjective: Patient awake, alert, oriented. Patient stated that usually he dri nks 4 bottles of beer daily for many years Objective: VITAL SIGNS: Please see below. GENERAL: AAO3 HEENT: NCAT, anicteric sclera, ASHER NECK: supple, no JVD CARDIOVASCULAR EXAMINATION: S1S2, regular rate/rhythm RESPIRATORY EXAMINATION: CTA b/l, no wheezes/rales/rhonchi ABDOMINAL EXAMINATION: positive bowel sounds x 4, NT EXTREMITIES: +2 edema of lower extremities SKIN: warm, no rashes. NEUROLOGICAL EXAMINATION: reflexes intact, no nuchal rigidity, cranial nerves from 2-12 intact Assessment and plan: Patient is 69 years old female with past history of COPD, hypertension, alcohol abuse who was admitted to the hospital with metabolic encephalopathy. Patient was found to have symptomatic hyponatremia. Most likely secondary to beer potomania and tea and toast diet. Continue to slowly increase sodium level. Metabolic encephalopathy Resolved Most likely secondary to hyponatremia CT head negative Hyponatremia Most likely due to beer potomania and tea and toast diet. urine osmolality pending Nephrology team follows patient Alcohol withdrawal Continue CIWA Edema of both extremities Echo ordered DVT of lower extremities negative Chest x-ray did not show cardiomegaly BNP elevated to 2000 Will start Lasix after initial electrolytes stabilization Hypertension Blood pressures under control Continue home meds Transaminitis AST>ALT most likely due to alcohol abuse Ultrasound of the liver ordered and showed heterogeneous echotexture of the liver. No liver mass is seen. No biliary dilatation. Mild gallbladder sludge. Continue to monitor VS,Fishbone, I+O VS, Fishbone, I+O Laboratory Tests 02/29/20 14:07 02/29/20 21:15 03/01/20 01:53 03/01/20 07:47 Vital Signs Date Time Temp Pulse Resp B/P (MAP) Pulse Ox O2 Delivery O2 Flow Rate FiO2 03/01/20 12:00 98.3 101 18 139/78 (98) 97 Room Air 03/01/20 04:00 2.0 I&O- Last 24 Hours up to 6 AM 03/01/20 05:59 Intake Total 2100 ml Output Total 1640 ml Balance 460 ml JAMES PIZANO DO Mar 01, 2020 13:30
[2020-03-01 14:45] LABS: BLOOD UREA NITROGEN 16 MG/DL (7-18); CALCIUM LEVEL 8.9 MG/DL (8.8-10.2); CARBON DIOXIDE LEVEL 30 MEQ/L (21-32); CHLORIDE LEVEL 87 MEQ/L (98-107); CREATININE FOR GFR 1.08 MG/DL (0.70-1.30); GLOMERULAR FILTRATION RATE > 60.0 (>49); GLUCOSE, FASTING 140 MG/DL (70-100); POTASSIUM SERUM 3.7 MEQ/L (3.5-5.1); SODIUM LEVEL 123 MEQ/L (136-145)
--- NOTE | 2020-03-01 16:19 | IPN ---
DATE OF SERVICE: 03/01/2020 Mr. Mackey was seen and examined this morning during bedside rounds. He is sitting up comfortably in his bed eating his breakfast. He states, he has an appetite to eat breakfast and really has no complaints today. He did have slightly slurred speech but he understands he is at [facility] but he is unsure of what year it is. He understands he was admitted for he was not feeling well and his last alcoholic drink was 2 days prior to presentation. The patient endorsed that he does have a history of chronic obstructive pulmonary disease (COPD) and nothing else further. He is currently being treated for his severe hyponatremia, which is improving day by day, and is currently able to tolerate a meal. He has no other complaints today and no other overnight events were reported by nursing. He did have a CT of the head without contrast overnight for possible left facial droop, which was negative for any acute intracranial pathology. Liver ultrasound shows heterogeneous echotexture of the liver with no dilatation with mild gallbladder sludge. PHYSICAL EXAMINATION: VITAL SIGNS: Temperature 97.2, pulse 104, respirations 17, blood pressure 133/73, mean arterial pressure (MAP) of 93, pulse oximetry 96% on room air. GENERAL: This is a 69-year-old male who is slightly confused at baseline, alert and oriented times two to person and place but not time. HEENT: Atraumatic, normocephalic. Pupils equal, round, and reactive. Extraocular movements are intact. No jugular venous distention (JVD) suprisingly. Mucous membranes are moist with no mucosa breakdown. HEART: Tachycardic rate but with no audible murmurs. LUNGS: Difficult to assess for poor inspiratory effort but no audible wheezing or rhonchi is appreciated. ABDOMEN: Soft, nontender., EXTREMITIES: No lower extremity edema. Does have some abrasions on the elbows bilaterally with no discharge, no tenderness, slightly pink there. He does have mild pinkish hues to the right hand. NEUROLOGIC: Alert and oriented times two to person and place, not agitated, not altered mental today, and is able to able to answer questions slightly appropriate today. LABORATORY DATA: WBC 10.5, hemoglobin 10.7, hematocrit 30.7, platelets 305. Chemistry: Sodium 124, potassium 3.8, chloride 85, carbon dioxide 31, anion gap 8, BUN 17, creatinine 0.97, fasting glucose 97. Head CT negative for any intracranial processes, intracranial pathologies. Liver ultrasound shows heterogenous echotexture of the liver with no liver mass, biliary dilatation, and there is mild gallbladder sludge. ASSESSMENT AND PLAN: 1. Severe hyponatremia. His sodium this morning is 124. He is currently tolerating diet. We will actually stop his potassium half normal saline fluid and change him to 20 mEq potassium chloride with normal saline running at 80 mL/h and reassess in the morning. I do believe his hyponatremia is chronic in nature. He was on hydrochlorothiazide as well as has a history of COPD being treated right now for pneumonia. His hyponatremia could be secondary to the hydrochlorothiazide as well as the fact that he has an alcohol abuse history can be secondary to beer proteinemia as well. At this current time, we will continue with new IV fluids the next 24 hours and then if they continue to improve tomorrow we will diurese him a little bit so he does not rapidly correct his sodium. We will reassess tomorrow. 2. Hypokalemia. His potassium this morning is improved at 3.8. It is gradually improving with the potassium chloride in the fluids. So, we will continue to monitor. 3. Acute kidney injury has resolved. His BUN and creatinine is 17 and 0.97, respectively. It has improved with IV fluids and he is currently tolerating oral intake. So, we will continue to monitor. 4. Anemia. His hemoglobin is 10.7, which is currently stable, with a MCV of 93.7, which is normochromic anemia. At the current time, I do not believe any intervention is needed and will monitor. If his hemoglobin/hematocrit (H/H) continues trends down, we will reevaluate if transfusion is needed. At this current, no intervention is needed and will monitor.
[2020-03-01 20:27] LABS: BLOOD UREA NITROGEN 14 MG/DL (7-18); CALCIUM LEVEL 8.7 MG/DL (8.8-10.2); CARBON DIOXIDE LEVEL 29 MEQ/L (21-32); CHLORIDE LEVEL 89 MEQ/L (98-107); CREATININE FOR GFR 0.88 MG/DL (0.70-1.30); GLOMERULAR FILTRATION RATE > 60.0 (>49); GLUCOSE, FASTING 109 MG/DL (70-100); POTASSIUM SERUM 3.9 MEQ/L (3.5-5.1); SODIUM LEVEL 126 MEQ/L (136-145)
[2020-03-01] MEDS: ATORVASTATIN 20 MG TAB PO SCH (20:28)
[2020-03-01] MEDS ORDERED: FUROSEMIDE 40MG/4ML VIAL (J1940) IV ONE (21:30)
[2020-03-02] VITALS (8 sets, daily range): BP systolic 129–158; BP diastolic 68–92
[2020-03-02 02:33] LABS: BLOOD UREA NITROGEN 13 MG/DL (7-18); CALCIUM LEVEL 8.6 MG/DL (8.8-10.2); CARBON DIOXIDE LEVEL 32 MEQ/L (21-32); CHLORIDE LEVEL 88 MEQ/L (98-107); CREATININE FOR GFR 0.76 MG/DL (0.70-1.30); GLOMERULAR FILTRATION RATE > 60.0 (>49); GLUCOSE, FASTING 100 MG/DL (70-100); POTASSIUM SERUM 3.6 MEQ/L (3.5-5.1); SODIUM LEVEL 125 MEQ/L (136-145)
[2020-03-02] MEDS: METOPROLOL 5 MG/5 ML VIAL IV SCH ×3 (03:23→08:14)
[2020-03-02] MEDS ORDERED: POTASSIUM CHLORIDE 10 MEQ SR TABLET PO ONE (07:30)
[2020-03-02] MEDS: FOLIC ACID 1 MG TAB PO SCH (08:06)
[2020-03-02] MEDS: MULTIVITAMINS/MINERALS THERAP 1 TAB PO SCH (08:06)
[2020-03-02] MEDS: PANTOPRAZOLE 40MG TAB (PROTONIX) PO SCH (08:06)
[2020-03-02] MEDS: HEPARIN SOD (PORCINE) 5000UNITS/ML VIAL (J1644 PER 1000UNITS) SC SCH ×2 (08:06→20:29)
[2020-03-02] MEDS: THIAMINE 100 MG TAB PO SCH (08:06)
[2020-03-02] MEDS: NYSTATIN 100,000 UNITS/GM TOPICAL PWD 15 GM TOP SCH ×2 (08:07→20:29)
[2020-03-02] MEDS: METOPROLOL TART 50 MG TAB PO SCH ×4 (08:30→23:59)
[2020-03-02] MEDS: diltiaZEM **CD** 180 MG CAP PO SCH (08:30)
[2020-03-02] MEDS: SYMBICORT 160/4.5MCG INHALER 6GM INH SCH ×2 (08:35→19:40)
[2020-03-02] MEDS ORDERED: POTASSIUM CHLORIDE 10 MEQ SR TABLET PO SCH (09:00)
[2020-03-02] MEDS: FUROSEMIDE 40 MG TAB PO SCH (09:01)
[2020-03-02 09:27] LABS: ALBUMIN 2.7 GM/DL (3.2-5.2); ALT/SGPT 138 U/L (12-78); BILIRUBIN,DIRECT 0.2 MG/DL (0.0-0.2); BILIRUBIN,TOTAL 0.5 MG/DL (0.2-1.0); BLOOD UREA NITROGEN 10 MG/DL (7-18); CALCIUM LEVEL 8.6 MG/DL (8.8-10.2); CARBON DIOXIDE LEVEL 29 MEQ/L (21-32); CHLORIDE LEVEL 90 MEQ/L (98-107); CREATININE FOR GFR 0.82 MG/DL (0.70-1.30); GLOMERULAR FILTRATION RATE > 60.0 (>49); GLUCOSE, FASTING 156 MG/DL (70-100); SODIUM LEVEL 128 MEQ/L (136-145); TOTAL PROTEIN 5.4 GM/DL (6.4-8.2)
[2020-03-02 14:55] LABS: BLOOD UREA NITROGEN 10 MG/DL (7-18); CALCIUM LEVEL 9.1 MG/DL (8.8-10.2); CARBON DIOXIDE LEVEL 34 MEQ/L (21-32); CHLORIDE LEVEL 90 MEQ/L (98-107); CREATININE FOR GFR 0.87 MG/DL (0.70-1.30); GLOMERULAR FILTRATION RATE > 60.0 (>49); GLUCOSE, FASTING 108 MG/DL (70-100); POTASSIUM SERUM 4.7 MEQ/L (3.5-5.1); SODIUM LEVEL 127 MEQ/L (136-145)
--- NOTE | 2020-03-02 16:02 | IPNPDOC ---
Text Note Date of Service The patient was seen on 03/02/20. NOTE Subjective: Patient is a 69-year-old male with a PMHx of HTN, COPD and history of alcohol use who presented to the ER and [facility] because of confusion. Patient had lab work drawn at that hospital that revealed hyponatremia and patient was transferred to [facility] for further evaluation and nephrology consultation. Patient was admitted to the hospitalist service for further evaluation and treatment. Patient was seen and examined at the bedside. Currently, patient is awake, alert and oriented. He denies any chest pain, shortness breath or palpitations. Denies nausea, vomiting, abdominal pain, constipation, diarrhea, or urinary discomfort. Objective: Vitals (See below) General: Lying in bed, appears comfortable, AAOx3 HEENT: NC, AT CVS: +S1S2 Lungs: Fair air entry b/l, -w/r/r Abdomen: Soft, ND, NT Extremities: - Edema, - Calf tenderness Assessment and plan: Acute metabolic encephalopathy - likely 2/2 hyponatremia - Appears to be oriented to person, place and time at this time - No focal neurological deficits - CT head 02/28: 1. No acute intracranial pathology. ASPECTS score 10. 2. Other chronic findings, as above. - See below Severe hyponatremia - likely 2/2 hypotonic euvolemic / hypovolemic etiology, possibly 2/2 medications / alcohol - Sodium has been slowly improving - Will continue to follow sodium and allow for gradual slow rise - Nephrology in consultation; appreciate their input HTN - BP well controlled - Resumed Diltiazem and Metoprolol from outpatient setting with holding parameters DLP - c/w Atorvastatin Hypokalemia - s/p supplementation Alcohol withdrawal - c/w MVI, Thiamine, Folate - c/w CIWA protocol s/p CUBA - Cr has improved Transaminitis - possibly 2/2 ETOH - Counts have been improving - Liver US 02/28: Heterogeneous echotexture of the liver. No liver mass is seen. No biliary dilatation. Mild gallbladder sludge. - Will check hepatitis profile Anemia - Hg appears stable - no evidence of bleed GERD - c/w Protonix DVT prophylaxis - c/w Heparin VS,Fishbone, I+O VS, Fishbone, I+O Laboratory Tests 03/01/20 19:50 03/02/20 01:57 03/02/20 08:46 03/02/20 14:14 Vital Signs Date Time Temp Pulse Resp B/P (MAP) Pulse Ox O2 Delivery O2 Flow Rate FiO2 03/02/20 12:11 74 136/82 03/02/20 12:00 97.9 19 97 Room Air 03/01/20 04:00 2.0 I&O- Last 24 Hours up to 6 AM 03/02/20 05:59 Intake Total 3060 ml Output Total 2175 ml Balance 885 ml SHANE CRAWFORD MD Mar 02, 2020 16:02
--- NOTE | 2020-03-02 18:48 | IPN ---
DATE: 03/02/2020 Mr. Mackey was seen and examined this morning during bedside rounds. He is tolerating his breakfast really well. He has no complaints today. He has been eating and drinking with no problem as well. He got his first Lasix dose last night, which he tolerated very well. His blood pressures have been controlled relatively with the systolics in the 150s. His hyponatremia has been consistent at 125, 126. No overnight events were reported by nursing. PHYSICAL EXAM: Vital Signs: Temperature 97.4, pulse 93, respirations 18, blood pressure 158/86 (110), pulse oximetry 93% on room air. Intake total 3110 mL, output total 1775 mL, balance of positive 1335 mL. Weight this morning was 79.9 kg. General: This is a very pleasant 69-year-old male who does not appear in acute distress, sitting up comfortably in his bed, appropriately answering questions, but he is only alert and oriented times two. HEENT: Atraumatic, normocephalic. Slight jugular venous distention (JVD) appreciated from the sternal notch measuring about 5 cm above the sternal notch. Heart: Regular rate and rhythm. No audible murmurs, rubs, or gallops. Lungs: No audible wheezing, rhonchi. Difficult to really assess due to poor respiratory effect but appears to be clear. Abdomen: Soft, nontender. Extremities: No lower extremity edema. Neurologic: Alert and oriented times two, person and place but not time. He is not agitated. LABORATORY DATA: Hematology was not done this morning but chemistry shows sodium was 125, potassium 3.6, chloride 88, carbon dioxide 32, anion gap 5, BUN 13, creatinine 0.76, fasting glucose 100, calcium 8.6. ASSESSMENT AND PLAN: 1. Severe hyponatremia. Sodium this morning was 125 - stable for the last 24 hours. He was diuresed gently yesterday with a one-time dose of 40 mg of furosemide, which he tolerated very well and we stopped his intravenous (IV) fluids and gave him one potassium chloride 20 mEq dose, which he tolerated very well. I believe his hyponatremia is possibly chronic in nature secondary from his hydrochlorothiazide and chronic obstructive pulmonary disease (COPD), as well as the poor diet from his alcohol abuse. Because we are stopping the hydrochlorothiazide from his blood pressure control, we are going to start him on Lasix 40 mg daily by mouth, as well as potassium replacement, and will monitor his hyponatremia with the current Lasix dose. 2. Hypokalemia. Improved. Because we are diuresing him, will continue with the potassium chloride 40 mEq daily and monitor. 3. Acute kidney injury, has resolved. He is tolerating a good oral intake. Will continue to monitor. 4. Congestive heart failure. He is slightly fluid overloaded today with a JVD. Because we will be diuresing him with the Lasix 40 mg daily, we will monitor his fluid status. 5. Anemia, normochromic anemia. Hemoglobin and hematocrit were not drawn this morning, but he does not appear to be bleeding anywhere. Will continue to monitor.
[2020-03-02] MEDS: ATORVASTATIN 20 MG TAB PO SCH (20:29)
[2020-03-02 20:40] LABS: BLOOD UREA NITROGEN 11 MG/DL (7-18); CALCIUM LEVEL 8.8 MG/DL (8.8-10.2); CARBON DIOXIDE LEVEL 34 MEQ/L (21-32); CHLORIDE LEVEL 92 MEQ/L (98-107); GLOMERULAR FILTRATION RATE > 60.0 (>49); GLUCOSE, FASTING 103 MG/DL (70-100); POTASSIUM SERUM 4.6 MEQ/L (3.5-5.1); SODIUM LEVEL 130 MEQ/L (136-145)
[2020-03-03] VITALS (10 sets, daily range): BP systolic 102–160; BP diastolic 57–92
[2020-03-03 04:43] LABS: HEMATOCRIT 29.2 % (42.0-52.0); HEMOGLOBIN 10.2 g/dl (13.5-17.5); MEAN CORPUSCULAR HEMOGLOBIN 32.7 pg (27.0-33.0); MEAN CORPUSCULAR HGB CONC 34.9 g/dl (32.0-36.5); MEAN CORPUSCULAR VOLUME 93.6 fl (80.0-96.0); PLATELET COUNT, AUTOMATED 336 10^3/uL (150-450); RED BLOOD COUNT 3.12 10^6/uL (4.30-6.10); WHITE BLOOD COUNT 10.5 10^3/uL (4.0-10.0)
[2020-03-03 05:08] LABS: BLOOD UREA NITROGEN 11 MG/DL (7-18); CALCIUM LEVEL 8.8 MG/DL (8.8-10.2); CARBON DIOXIDE LEVEL 32 MEQ/L (21-32); CHLORIDE LEVEL 92 MEQ/L (98-107); CREATININE FOR GFR 0.74 MG/DL (0.70-1.30); GLOMERULAR FILTRATION RATE > 60.0 (>49); GLUCOSE, FASTING 98 MG/DL (70-100); POTASSIUM SERUM 4.5 MEQ/L (3.5-5.1); SODIUM LEVEL 130 MEQ/L (136-145)
[2020-03-03] MEDS: METOPROLOL TART 50 MG TAB PO SCH ×4 (05:47→23:27)
[2020-03-03] MEDS: SYMBICORT 160/4.5MCG INHALER 6GM INH SCH ×2 (07:55→19:47)
[2020-03-03] MEDS: PANTOPRAZOLE 40MG TAB (PROTONIX) PO SCH (09:33)
[2020-03-03] MEDS: HEPARIN SOD (PORCINE) 5000UNITS/ML VIAL (J1644 PER 1000UNITS) SC SCH ×2 (09:33→20:31)
[2020-03-03] MEDS: diltiaZEM **CD** 180 MG CAP PO SCH (09:33)
[2020-03-03] MEDS: FUROSEMIDE 40 MG TAB PO SCH (09:34)
[2020-03-03] MEDS: POTASSIUM CHLORIDE 10 MEQ SR TABLET PO SCH (09:34)
[2020-03-03] MEDS: NYSTATIN 100,000 UNITS/GM TOPICAL PWD 15 GM TOP SCH ×2 (09:34→20:31)
[2020-03-03] MEDS: MULTIVITAMINS/MINERALS THERAP 1 TAB PO SCH (09:34)
[2020-03-03] MEDS: FOLIC ACID 1 MG TAB PO SCH (09:34)
[2020-03-03 10:03] LABS: HEPATITIS A ANTIBODY IGM NEGATIVE (NEGATIVE); HEPATITIS B CORE ANTIBODY IGM NEGATIVE (NEGATIVE); HEPATITIS B SURFACE ANTIGEN NEGATIVE (NEGATIVE); HEPATITIS C VIRUS ABY INDEX 0.2 INDEX (<0.8)
--- NOTE | 2020-03-03 13:03 | IPNPDOC ---
Text Note Date of Service The patient was seen on 03/03/20. NOTE Subjective: Patient is a 69-year-old male with a PMHx of HTN, COPD and history of alcohol use who presented to the ER and [facility] because of confusion. Patient had lab work drawn at that hospital that revealed hyponatremia and patient was transferred to [facility] for further evaluation and nephrology consultation. Patient was admitted to the hospitalist service for further evaluation and treatment. Patient was seen and examined at the bedside. Patient is oriented to person, place and time. He denies any confusion, nausea, vomiting, chest pain, shortness breath, abdominal pain, diarrhea, or urinary discomfort. Objective: Vitals (See below) General: Lying in bed, patient remains comfortable and is oriented to person, place and time HEENT: NC, AT CVS: +S1S2 Lungs: Fair air entry b/l, auscultation is free of rhonchi, crackles or wheezing Abdomen: Soft, nondistended and nontender Extremities: Lower extremity is free of any edema, - Calf tenderness Assessment and plan: s/p Acute metabolic encephalopathy - likely 2/2 hyponatremia - Remains oriented to person, place and time - No focal neurological deficits - CT head 02/28: 1. No acute intracranial pathology. ASPECTS score 10. 2. Other chronic findings, as above. - See below Severe hyponatremia - likely 2/2 hypotonic euvolemic / hypovolemic etiology, possibly 2/2 medications / alcohol - Sodium has been slowly improving; approaching normalization - Continue with fluid restrictions and diuretics - Nephrology in consultation; appreciate their input HTN - BP well controlled - Resumed Diltiazem and Metoprolol from outpatient setting with holding parameters DLP - c/w Atorvastatin Hypokalemia - s/p supplementation Alcohol withdrawal - c/w MVI, Thiamine, Folate - c/w CIWA protocol s/p CUBA - Cr has improved Transaminitis - possibly 2/2 ETOH - Counts have show improvement - Liver US 02/28: Heterogeneous echotexture of the liver. No liver mass is seen. No biliary dilatation. Mild gallbladder sludge. - Hepatitis profile negative Anemia - Hg appears stable - no evidence of bleed GERD - c/w Protonix DVT prophylaxis - c/w Heparin Disposition: - c/w PT and OT - Likely will need rehabilitation VS,Fishbone, I+O VS, Fishbone, I+O Laboratory Tests 03/02/20 14:14 03/02/20 20:07 03/03/20 04:23 Vital Signs Date Time Temp Pulse Resp B/P (MAP) Pulse Ox O2 Delivery O2 Flow Rate FiO2 03/03/20 12:04 72 118/57 03/03/20 12:00 97.6 20 96 Room Air 03/01/20 04:00 2.0 I&O- Last 24 Hours up to 6 AM 03/03/20 06:00 Intake Total 660 ml Output Total 2350 ml Balance -1690 ml SHANE CRAWFORD MD Mar 03, 2020 13:03
--- NOTE | 2020-03-03 18:02 | IPN ---
DATE: 03/03/2020 Mr. Mackey was seen and examined this morning during bedside rounds, sitting up comfortably, just finishing breakfast this morning. He has no complaints today. His sodium has improved to 130 this morning. He has been tolerating the Lasix and the potassium chloride supplements that he has been receiving. There are no overnight events reported. Patient denies any fevers, chills, night sweats, abdominal discomfort. He would like to go home and has really no complaints today. PHYSICAL EXAMINATION: VITAL SIGNS: Temperature 97.8, pulse 76, respirations 20, blood pressure 153/74 (100), pulse oximetry 94% on room air. Intake total: 1140, output total 2825, balance of -1685 mL. His weight this morning was 78.3 kg. GENERAL: This is a disheveled 69-year-old male who does not appear in acute distress, who appears older than stated age. Alert and oriented times three today, surprisingly. HEENT: Atraumatic, normocephalic. Positive hepatojugular reflux but no jugular venous distention (JVD). HEART: Regular rate and rhythm. No audible murmurs, rubs, or gallops. LUNGS: Clear to auscultate bilaterally, but patient does have poor inspiratory effort, so really truly difficult to assess, but I do not appreciate any crackles at the bases. ABDOMEN: Soft, nontender. Positive bowel sounds in all four quadrants. EXTREMITIES: No lower extremity edema or pitting edema appreciated. NEUROLOGIC: Alert and oriented times three to person, place, and time today. Not agitated. LABORATORY DATA: WBC 10.5, hemoglobin 10.2, hematocrit 29.2, platelets 336. Chemistries: Sodium 130, potassium 4.5, chloride 92, carbon dioxide 32, anion gap 6, BUN 11, creatinine 0.74, fasting glucose 98. No new imaging. ASSESSMENT AND PLAN: 1. Severe hyponatremia. His sodium this morning has improved to 130. He is responding very well to the Lasix 40 mg by mouth daily as well as the potassium 40 mEq. We will actually reduce his potassium to 20 mEq but continue with the Lasix dose. We believe that his severe hyponatremia is multifactorial secondary to his hydrochlorothiazide, chronic obstructive pulmonary disease (COPD), as well as his poor oral intake from alcohol abuse. Upon discharge, we will discontinue his hydrochlorothiazide and switch him to Lasix 40 mg oral and continue with potassium supplements with 20 mEq. 2. Hypokalemia, resolved with the potassium chloride. We will reduce to 20 mEq. 3. Acute kidney injury, resolved. Good oral intake. 4. Congestive heart failure, resolved. No jugular venous distention (JVD) on exam. He has diuresed very well with the Lasix 40 mg. We will continue as such for blood pressure control as well. 5. Hypertension. Controlled today at 153/74, so will continue with the Lasix for blood pressure control as well. 6. Anemia. Hemoglobin and hematocrit are definitely stable at 10.2/29.2. No intervention is needed.
[2020-03-03] MEDS: ATORVASTATIN 20 MG TAB PO SCH (20:31)
[2020-03-04] MEDS: METOPROLOL TART 50 MG TAB PO SCH ×2 (05:34→12:41)
[2020-03-04 06:00] VITALS: BP 160/58
[2020-03-04] MEDS: SYMBICORT 160/4.5MCG INHALER 6GM INH SCH (07:06)
[2020-03-04 07:46] LABS: BASO # 0.1 10^3/uL (0.0-0.2); EOS # 2.7 10^3/uL (0.0-0.5); HEMATOCRIT 31.1 % (42.0-52.0); HEMOGLOBIN 10.5 g/dl (13.5-17.5); LYMPH # 1.2 10^3/uL (1.5-5.0); LYMPH % 12.3 % (24.0-44.0); MEAN CORPUSCULAR HEMOGLOBIN 32.5 pg (27.0-33.0); MEAN CORPUSCULAR HGB CONC 33.8 g/dl (32.0-36.5); MEAN CORPUSCULAR VOLUME 96.3 fl (80.0-96.0); MONO # 1.4 10^3/uL (0.0-0.8); MONO % 14.1 % (0.0-5.0); NEUTROPHILS # 4.2 10^3/uL (1.5-8.5); PLATELET COUNT, AUTOMATED 365 10^3/uL (150-450); RED BLOOD COUNT 3.23 10^6/uL (4.30-6.10); WHITE BLOOD COUNT 9.9 10^3/uL (4.0-10.0)
--- NOTE | 2020-03-04 07:46 | ECHO ---
DATE OF STUDY: 03/01/2020 DATE OF : 1950 AGE: 69 GENDER: Male AGE: 69 GENDER: Male HEIGHT: 63 inches WEIGHT: 178 pounds BODY SURFACE AREA: 1.84 meters squared INPATIENT: PCU - Room 3229 REFERRING PHYSICIAN: Dr. Carlos Naranjo INDICATION: Edema. MEASUREMENTS 2-D Measurements: RV: 4.2 cm LV: 4.6 cm Septum: 1.3 cm Posterior wall: 1.3 cm Aortic root: 3.5 cm LA: 4.0 cm LVEF: 75% Doppler Measurements: AV: 1.6 m/s LVOT: 1.0 m/s LVOT diameter: 2.0 cm MV - E 55 A 81 EA ratio 0.7 Early mitral deceleration time: 127 ms E prime medial: 5.8 A prime medial: 18 E prime lateral: 9.5 Average E/E prime ratio: 7.2/PCWP 10.8 mmHg PV: 1.0 m/s Pulmonary artery acceleration time: 85 ms RVSP: 48 mmHg IVC: 1.8 cm COMMENTS: Normal sinus rhythm with interventricular conduction disturbance. Technically challenging study in light of the patient's body habitus, but diagnostically useful information was still obtained. M-mode and two-dimensional echocardiography was performed with pulsed, continuous wave, color flow and tissue Doppler studies. Mild concentric left ventricle hypertrophy with hyperkinetic wall motion. Mildly dilated left atrium with grade 1 LV diastolic dysfunction, but currently normal estimated mean left atrial pressure. At least mildly dilated right heart chambers with normal wall motion and Doppler evidence of at least moderate pulmonary hypertension. IVC size upper limits of normal with adequate respiratory collapse against an elevated central venous pressure at this time. Normal aortic root size. Mild aortic valvular sclerosis without functional abnormality. Mild mitral annular calcification without inflow tract obstruction and only very mild insufficiency. Normal appearing tricuspid valve with mild insufficiency. No apparent intracardiac mass and no more than physiological pericardial fluid.
[2020-03-04 08:14] LABS: BLOOD UREA NITROGEN 11 MG/DL (7-18); CALCIUM LEVEL 9.5 MG/DL (8.8-10.2); CARBON DIOXIDE LEVEL 33 MEQ/L (21-32); CHLORIDE LEVEL 92 MEQ/L (98-107); CREATININE FOR GFR 0.84 MG/DL (0.70-1.30); GLOMERULAR FILTRATION RATE > 60.0 (>49); GLUCOSE, FASTING 89 MG/DL (70-100); MAGNESIUM LEVEL 1.3 MG/DL (1.8-2.4); POTASSIUM SERUM 4.1 MEQ/L (3.5-5.1); SODIUM LEVEL 131 MEQ/L (136-145)
[2020-03-04 08:23] LABS: EOS % 27.1 % (0.0-3.0)
[2020-03-04] MEDS ORDERED: MAGNESIUM OXIDE 400 MG TAB (MAG-OX) PO SCH (09:00)
[2020-03-04] MEDS ORDERED: MAG SULF 1GM/100ML (MAG RUN) 1 GM in IV 1 EA IV ONE (09:30)
[2020-03-04] MEDS: HEPARIN SOD (PORCINE) 5000UNITS/ML VIAL (J1644 PER 1000UNITS) SC SCH (10:12)
[2020-03-04] MEDS: POTASSIUM CHLORIDE 10 MEQ SR TABLET PO SCH (10:12)
[2020-03-04] MEDS: FUROSEMIDE 40 MG TAB PO SCH (10:13)
[2020-03-04] MEDS: FOLIC ACID 1 MG TAB PO SCH (10:13)
[2020-03-04] MEDS: MULTIVITAMINS/MINERALS THERAP 1 TAB PO SCH (10:16)
[2020-03-04] MEDS: PANTOPRAZOLE 40MG TAB (PROTONIX) PO SCH (10:16)
[2020-03-04] MEDS: NYSTATIN 100,000 UNITS/GM TOPICAL PWD 15 GM TOP SCH (10:16)
[2020-03-04] MEDS: diltiaZEM **CD** 180 MG CAP PO SCH (10:16)
[2020-03-04] MEDS ORDERED: KLOR10TA76 PO (11:10)
[2020-03-04] MEDS ORDERED: FOLI1TAB11 PO (11:10)
[2020-03-04] MEDS ORDERED: MAG400TA PO (11:10)
[2020-03-04] MEDS ORDERED: FURO40TA2 PO (11:10)
[2020-03-04] MEDS ORDERED: VITMTA PO (11:10)
[2020-03-04] MEDS ORDERED: PANT40TA3 PO (11:10)
--- NOTE | 2020-03-04 11:18 | DS.PDOC ---
Discharge Summary General Date of Admission February 28, 2020 at 18:10 Date of Discharge 03/04/2020 Discharge Summary PROCEDURES PERFORMED DURING STAY: [None]. ADMITTING DIAGNOSES / DISCHARGE DIAGNOSES: s/p Acute metabolic encephalopathy - likely 2/2 hyponatremia Severe hyponatremia - likely 2/2 hypotonic euvolemic / hypovolemic etiology, possibly 2/2 medications / alcohol HTN DLP Hypokalemia Alcohol withdrawal s/p CUBA Transaminitis - possibly 2/2 ETOH Anemia GERD DVT prophylaxis COMPLICATIONS/CHIEF COMPLAINT: Hyponatremia / Confusion HISTORY OF PRESENT ILLNESS: Patient is a 69-year-old male with a PMHx of HTN, COPD and history of alcohol use who presented to the ER and [facility] because of confusion. Patient had lab work drawn at that hospital that revealed hyponatremia and yolis lindquist was transferred to [facility] for further evaluation and nephrology consultation. Patient was admitted to the hospitalist service for further evaluation and treatment. HOSPITAL COURSE: s/p Acute metabolic encephalopathy - likely 2/2 hyponatremia - Again this morning, patient is fully oriented to person, place and time without any focal neurologic deficits - CT head 02/28: 1. No acute intracranial pathology. ASPECTS score 10. 2. Other chronic findings, as above. - See below Severe hyponatremia - likely 2/2 hypotonic euvolemic / hypovolemic etiology, possibly 2/2 medications / alcohol - Sodium has slowly continued to improve with fluid restrictions and diuresis - c/w 2000 cc fluid restriction and Furosemide - Will discontinue Catherine catheter that was inserted for critical care monitoring - Nephrology in consultation; appreciate their input HTN - BP well controlled - c/w Diltiazem and Metoprolol from outpatient setting with holding parameters DLP - c/w Atorvastatin Hypokalemia - s/p supplementation Alcohol withdrawal - c/w MVI, Thiamine, Folate - c/w CIWA protocol s/p CUBA - Cr has improved Transaminitis - possibly 2/2 ETOH - Counts have show improvement - Liver US 02/28: Heterogeneous echotexture of the liver. No liver mass is seen. No biliary dilatation. Mild gallbladder sludge. - Hepatitis profile negative Anemia - Hg appears stable - no evidence of bleed GERD - c/w Protonix DVT prophylaxis - c/w Heparin DISCHARGE MEDICATIONS: Please see below. ALLERGIES: Please see below. PHYSICAL EXAMINATION ON DISCHARGE: Vitals (See below) General: Patient is oriented to person, place and time HEENT: NC, AT CVS: +S1S2 Lungs: Air entry is fair bilaterally without evidence of rhonchi, crackles or wheezing Abdomen: Abdomen remains soft without any evidence of distention or tenderness Extremities: No edema appreciated, - Calf tenderness LABORATORY DATA: Please see below. ACTIVITY: [As tolerated]. DISCHARGE PLAN: Follow-up with Dr. Heart in the acute rehabilitation unit Follow-up with nephrology within the next 7 days Remain compliant with treatment plan and medications Return to the ER if you experience any problems DISPOSITION: ARU DISCHARGE CONDITION: [Stable]. TIME SPENT ON DISCHARGE: 35 minutes. Vital Signs/I&Os Vital Signs Date Time Temp Pulse Resp B/P (MAP) Pulse Ox O2 Delivery O2 Flow Rate FiO2 03/04/20 10:16 73 138/79 03/04/20 06:00 97.7 18 94 Room Air 03/01/20 04:00 2.0 I&O- Last 24 Hours up to 6 AM 03/04/20 06:00 Intake Total 1040 ml Output Total 2050 ml Balance -1010 ml Laboratory Data Labs 24H Laboratory Tests 2 03/04/20 07:26: Immature Granulocyte % (Auto) 2.5, Neutrophils (%) (Auto) 43.0, Lymphocytes (%) (Auto) 12.3L, Monocytes (%) (Auto) 14.1H, Eosinophils (%) (Auto) 27.1H, Basophils (%) (Auto) 1.0, Neutrophils # (Auto) 4.2, Lymphocytes # (Auto) 1.2L, Monocytes # (Auto) 1.4H, Eosinophils # (Auto) 2.7H, Basophils # (Auto) 0.1, Nucleated Red Blood Cells % (auto) 0.0, Anion Gap 6L, Glomerular Filtration Rate > 60.0, Calcium Level 9.5, Magnesium Level 1.3L CBC/BMP Laboratory Tests 03/04/20 07:26 Microbiology Microbiology 02/28/20 Blood Culture - Preliminary, Resulted No Growth after 72 hours. All specime... 02/28/20 Blood Culture - Preliminary, Resulted No Growth after 72 hours. All specime... 02/28/20 Respiratory Virus Panel (PCR) ([facility]) - Final, Complete Discharge Medications Scheduled Atorvastatin Calcium (Atorvastatin Calcium) 20 Mg Tablet, 20 MG PO QHS, (Reported) Budesonide/Formoterol (Symbicort 160-4.5 Mcg Inhaler) 6 Gm Hfa.aer.ad, 2 PUFF INH BID, (Reported) Diltiazem Hcl (Cardizem Cd) 360 Mg Cap.er.24h, 360 MG PO DAILY, (Reported) Diphenhydramine HCl (Benadryl) 25 Mg Capsule, 25 MG PO ASDIRECTED, (Reported) Folic Acid (Folic Acid) 1 Mg Tablet, 1 MG PO DAILY Furosemide (Furosemide) 40 Mg Tablet, 40 MG PO DAILY Loratadine (Loratadine) 10 Mg Tablet, 10 MG PO DAILY, (Reported) Magnesium Oxide (Magnesium Oxide) 400 Mg Tablet, 400 MG PO BID Metoprolol Succinate (Metoprolol Succinate) 200 Mg Tab.er.24h, 200 MG PO DAILY, (Reported) Multivitamins (Thera M Plus Tablet) 1 Each Tablet, 1 TAB PO DAILY Pantoprazole Sodium (Pantoprazole Sodium) 40 Mg Tablet.dr, 40 MG PO DAILY Potassium Chloride (Klor-Con M10) 10 Meq Tab.er.prt, 20 MEQ PO DAILY Scheduled PRN Albuterol Sulfate (Proair Hfa) 8.5 Gm Hfa.aer.ad, 2 PUFF INH Q4-6HP PRN for wheezing, (Reported) Allergies Coded Allergies: latex (Verified Allergy, Unknown, 02/28/20) SHANE CRAWFORD MD Mar 04, 2020 11:18
[2020-03-04 12:41] VITALS: BP 134/79
[2020-03-04 14:00] VITALS: BP 104/62
--- NOTE | 2020-03-04 16:30 | IPN ---
DATE: 03/04/2020 Mr. Mackey is seen this morning on his bedside. He just finished physical therapy and feels very short of breath. He is very weak and difficulty walking. He denies any nausea or vomiting. He was admitted with acute kidney injury and severe hyponatremia. His sodium level has been gradually improving. The patient is eating well. PHYSICAL EXAMINATION: Temperature 97.7 degrees Fahrenheit, heart rate 82 per minute and respiratory rate 18 per minute. Blood pressure 138/79 mmHg and oxygen saturation 94% on room air. Head is atraumatic. Neck is supple and without JVD or thyroid enlargement. There is no oral thrush or ulcers. Heart sounds are regular and lungs with few basilar rales. Abdomen soft and nontender and bowel sounds are normal. Extremities without any cyanosis or clubbing. There is no peripheral edema. Neurologically he is without a focal deficit but very weak. Today's labs show WBC count 9.9, hemoglobin 10.5 and hematocrit 31.1. Sodium is up to 131, potassium 4.1, chloride 92, CO2 of 33, BUN 11 and creatinine 0.84. Glucose 89, calcium 9.5. Magnesium is 1.3. PROBLEMS: 1. Acute kidney injury. Kidney function has returned to baseline and has been stable. The patient has adequate oral intake and IV fluid has been stopped. 2. Hyponatremia. Sodium level was 111 on admission and has gradually improved to 131 today. He should continue with fluid restriction and also he is on Lasix 40 mg daily which will be continued. 3. Congestive heart failure. At present his volume status is very well compensated and the patient continues with Lasix 40 mg daily by mouth. 4. Hypomagnesemia. This is nutritional and we will give him 1 gram of magnesium sulfate intravenously and also start oral magnesium oxide 400 mg twice a day. 5. Generalized weakness and deconditioning. The patient is very weak and is likely to require physical therapy for at least a few more days.
== END 2020-03-04 16:54 | DRG 640 ==
LOC: M ICU 18:10 → M PCU 02-29 15:23 → M MSPAV 03-03 23:44
PROVIDERS: ADMIT Internal Medicine; ATTEND Internal Medicine
DX: E87.1 Hypo-osmolality and hyponatremia (principal); G93.41 Metabolic encephalopathy; N17.9 Acute kidney failure, unspecified; F10.239 Alcohol dependence with withdrawal, unspecified; J44.9 Chronic obstructive pulmonary disease, unspecified; I10 Essential (primary) hypertension; R60.0 Localized edema; R74.8 Abnormal levels of other serum enzymes; E78.5 Hyperlipidemia, unspecified; E87.6 Hypokalemia; D63.8 Anemia in other chronic diseases classified elsewhere; K21.9 Gastro-esophageal reflux disease without esophagitis; E83.42 Hypomagnesemia; R26.2 Difficulty in walking, not elsewhere classified; R53.1 Weakness; Z87.891 Personal history of nicotine dependence; Z79.899 Other long term (current) drug therapy; Z91.040 Latex allergy status; Z11.59 Encounter for screening for other viral diseases

== ENCOUNTER 2020-03-04 13:52 | Inpatient (IN) | payer OTHER ==
[~2020-03-04] VITALS: Ht 160 cm; Wt 72.6 kg
[~2020-03-04 13:52] MED LIST changes: +BENA25CA4 PO; +CARD360C PO; +FOLI1TAB11 PO; +FURO40TA2 PO; +KLOR10TA76 PO; +LORA-622 PO; +MAG400TA PO; +PANT40TA3 PO; +SYMB16INH INH; +VITMTA PO
[2020-03-04] MEDS ORDERED: BISACODYL 10 MG SUPP PR PRN (16:45)
[2020-03-04] MEDS: METOPROLOL TART 50 MG TAB PO SCH ×2 (18:09→23:59)
[2020-03-04 18:32] VITALS: BP 128/66
[2020-03-04] MEDS: IPRATROPIUM 0.5MG/ALBUTEROL 2.5MG INH SOL UD 3ML (DUONEB)(J7620) NEB SCH (19:45)
[2020-03-04] MEDS: SYMBICORT 160/4.5MCG INHALER 6GM INH SCH (19:45)
[2020-03-04 20:00] VITALS: BP 137/86
[2020-03-04] MEDS: SENNA 8.6 MG TAB (SENOKOT) PO SCH (20:57)
[2020-03-04] MEDS: ATORVASTATIN 20 MG TAB PO SCH (20:57)
[2020-03-04] MEDS: DOCUSATE SODIUM 100 MG CAP PO SCH (20:57)
[2020-03-04] MEDS: MAGNESIUM OXIDE 400 MG TAB (MAG-OX) PO SCH (20:57)
[2020-03-04] MEDS: REMEDY PHYTOPLEX Z-GUARD PASTE 113GM TUBE (FROM STOREROOM PRODUCT) TOP SCH (21:00)
[2020-03-04] MEDS: HEPARIN SOD (PORCINE) 5000UNITS/ML VIAL (J1644 PER 1000UNITS) SC SCH (21:00)
[2020-03-04 23:59] VITALS: BP 142/86
[2020-03-05 04:00] VITALS: BP 134/70
[2020-03-05 05:43] VITALS: BP 138/84
[2020-03-05] MEDS: METOPROLOL TART 50 MG TAB PO SCH ×4 (05:51→23:29)
[2020-03-05 07:00] LABS: BASO # 0.1 10^3/uL (0.0-0.2); BASO % 1.3 % (0.0-1.0); EOS # 2.7 10^3/uL (0.0-0.5); HEMATOCRIT 31.8 % (42.0-52.0); HEMOGLOBIN 10.7 g/dl (13.5-17.5); LYMPH # 1.5 10^3/uL (1.5-5.0); LYMPH % 13.8 % (24.0-44.0); MEAN CORPUSCULAR HEMOGLOBIN 31.9 pg (27.0-33.0); MEAN CORPUSCULAR HGB CONC 33.6 g/dl (32.0-36.5); MEAN CORPUSCULAR VOLUME 94.9 fl (80.0-96.0); MONO # 1.6 10^3/uL (0.0-0.8); MONO % 14.6 % (0.0-5.0); NEUTROPHILS # 4.8 10^3/uL (1.5-8.5); NEUTROPHILS % 43.5 % (36.0-66.0); PLATELET COUNT, AUTOMATED 397 10^3/uL (150-450); RED BLOOD COUNT 3.35 10^6/uL (4.30-6.10); WHITE BLOOD COUNT 11.1 10^3/uL (4.0-10.0)
[2020-03-05 07:23] LABS: EOS % 24.5 % (0.0-3.0)
[2020-03-05 07:25] LABS: ALBUMIN 3.3 GM/DL (3.2-5.2); ALT/SGPT 96 U/L (12-78); BILIRUBIN,TOTAL 0.6 MG/DL (0.2-1.0); BLOOD UREA NITROGEN 13 MG/DL (7-18); CALCIUM LEVEL 9.2 MG/DL (8.8-10.2); CARBON DIOXIDE LEVEL 28 MEQ/L (21-32); CHLORIDE LEVEL 95 MEQ/L (98-107); CREATININE FOR GFR 0.88 MG/DL (0.70-1.30); GLOMERULAR FILTRATION RATE > 60.0 (>49); GLUCOSE, FASTING 89 MG/DL (70-100); MAGNESIUM LEVEL 1.7 MG/DL (1.8-2.4); POTASSIUM SERUM 4.1 MEQ/L (3.5-5.1); SODIUM LEVEL 130 MEQ/L (136-145); TOTAL PROTEIN 6.3 GM/DL (6.4-8.2)
[2020-03-05] MEDS: SYMBICORT 160/4.5MCG INHALER 6GM INH SCH ×2 (07:27→19:43)
[2020-03-05] MEDS: IPRATROPIUM 0.5MG/ALBUTEROL 2.5MG INH SOL UD 3ML (DUONEB)(J7620) NEB SCH ×3 (07:27→19:43)
[2020-03-05] MEDS: diltiaZEM **CD** 180 MG CAP PO SCH (08:26)
[2020-03-05] MEDS: HEPARIN SOD (PORCINE) 5000UNITS/ML VIAL (J1644 PER 1000UNITS) SC SCH ×2 (08:27→20:46)
[2020-03-05] MEDS: FOLIC ACID 1 MG TAB PO SCH (08:27)
[2020-03-05] MEDS: PANTOPRAZOLE 40MG TAB (PROTONIX) PO SCH (08:27)
[2020-03-05] MEDS: DOCUSATE SODIUM 100 MG CAP PO SCH ×2 (08:27→20:46)
[2020-03-05] MEDS: THIAMINE 100 MG TAB PO SCH (08:27)
[2020-03-05] MEDS: MULTIVITAMINS/MINERALS THERAP 1 TAB PO SCH (08:27)
[2020-03-05] MEDS: POTASSIUM CHLORIDE 10 MEQ SR TABLET PO SCH (08:27)
[2020-03-05] MEDS: MAGNESIUM OXIDE 400 MG TAB (MAG-OX) PO SCH ×2 (08:28→20:46)
[2020-03-05] MEDS: REMEDY PHYTOPLEX Z-GUARD PASTE 113GM TUBE (FROM STOREROOM PRODUCT) TOP SCH ×3 (08:28→20:48)
[2020-03-05] MEDS: FUROSEMIDE 40 MG TAB PO SCH (08:28)
[2020-03-05] MEDS: ACETAMINOPHEN TAB 650MG DOSE (2X325MG) PO PRN (09:40)
[2020-03-05] MEDS ORDERED: diphenhydrAMINE 25MG CAP PO STA (10:20)
--- NOTE | 2020-03-05 12:15 | HPEPDOC ---
Autistic Teacher Note DATE OF ADMISSION: 03-04-20 DATE OF SERVICE: 03-05-20 TIME OF ADMISSION: Please refer to physician's admission order. SOURCE OF ADMISSION INFORMATION: [facility] record and patient CHIEF COMPLAINT: encephalopathy due to metabolic derangement HISTORY OF PRESENT ILLNESS: 69M pmh COPD and HTN who presented to [facility] ED on 02-28-20 with altered mental status and was found to have severe hyponatremia with a sodium of 114 and hypokalemia with a potassium of 3.2 while having been on diuretics for his chronic bilateral LE edema. His diuretics were held, he was treated with gentle IVF and followed closely by Renal for his electrolyte imbalance and CUBA. He also had suspected alcohol withdrawal as cause of his encephalopathy and was treated with prn Ativan as part of the [facility] protocol. He had elevated LFTs and liver US showed, Heterogeneous echotexture of the liver. No liver mass is seen. His hyponatremia and hypokalemia improved, he was maintained on a fluid restriction and eventually restarted on diuretics. He was evaluated by therapy and noted to have impairments in mobility and ADLs and deemed medically appropriate for discharge to ARU on 03-04-20. REVIEW OF SYSTEMS: The following is a completed review of systems and has been reviewed. Review of systems otherwise unremarkable. PAIN: Patient self reports no pain EYES: No recent vision changes EARS, NOSE, & THROAT: No throat pain, or dysphagia, or rhinorrhea CARDIOVASCULAR: Denies chest pain or palpitations PULMONARY: Denies shortness of breath GASTROINTESTINAL: Denies constipation/diarrhea GENITOURINARY: denies dysuria MUSCULOSKELETAL: generalized weakness NEUROLOGICAL:+bilat EU tremor HEMATOLOGICAL: denies easy bruising SKIN: no rash PSYCHIATRIC: Unremarkable All other review of systems found to be negative. PAST MEDICAL HISTORY: as per HPI ALLERGIES: Please see below. MEDICATIONS: Please see below. SOCIAL HISTORY: Former smoker, +etoh, no illicit drugs DIET: fluid restrict PHYSICAL EXAMINATION: VITAL SIGNS: Please see below. GENERAL: Pleasant and cooperative. No acute distress. HEENT: PERRL. Extraocular movements intact. Clear conjunctiva CARDIOVASCULAR: Regular rate and rhythm. No murmurs, rubs, or gallops LUNGS: Clear to auscultation bilaterally. No wheezes. No rhonchi ABDOMEN: Soft, nontender, nondistended. Positive bowel sounds. Normal active bowel sounds NEUROLOGICAL: Alert and oriented times three. Cranial nerves II through XII grossly intact. Sensation grossly intact +bilat UE tremor EXTREMITIES: 5\5 strength bilateral upper extremities. 5\5 strength right lower extremity. 5/5 strength in left lower extremity. SKIN: no rash LABORATORY DATA: Please see below. IMAGING:Imaging documentation personally reviewed by record FUNCTIONAL STATUS: Premorbid: Independent with all activities of daily life as well as mobility On Admission: Contact guard for functional transfers and ambulation 55 feet GOALS: Mod-I community distance for ambulation, functional transfers, stairs, dressing, bathing, toileting, grooming ASSESSMENT:69-year-old M with past medical history of COPD, HTN who presents status post encephalopathy due to ETOH withdrawal and electrolyte imbalance PLAN: 1. Rehab- PT/OT advance ADLs and gait, strengthen/stretch/maintain ROM all 4 limbs 2. Neuro- s/p recent episodes of encephalopathy due to electrolyte imbalance and ETOH withdrawal causing gait and mobility impairment -c/u fluid fluid restrict for hyponatremia -thiamine and folic acid for ETOH abuse 3. Cardiac-HTN c/u cardizem and metoprolol -bilat LE edema c/u fluid restriction, daily weights, and Lasix, medicine consulted to assist in overall management -HLD c/u statin -medicine consulted to assist in overall management 4. Resp: hx of COPD, encourage incentive spirometry, Duonebs, Symbicort -patient recently treated for atypical pneumonia a [facility] 5. Hypokalemia- c/u daily supplements, c/u to replete Mg with oral agents 6. Hyponatremia- c/u fluid restriction 7. DVT ppx: heparin and TEDs 8. GI ppx: protonix 9. Pain: tylneol prn 10. Dispo: TBD POST ADMISSION PHYSICIAN EVALUATION: Medical and functional status: Description of medical status, medical assessment: As above. Rehabilitation diagnosis and current and prior cold morbid medical conditions as above. Risk of complications and plans to mitigate them as above. Description of functional status current status is as above. Prior status as above. Status compared to preadmission: There are no clinically significant differences between the patient's current status and the information described on the preadmission screening document. Treatment plan anticipated: Treatment plan is as described above. Required disciplines including physical therapy, occupational therapy, others as noted above. Intensity of services: 3 hours a day, 6 days a week. Special considerations: There are no specific special or safety considerations that would likely preclude immediate implementation of an intensive rehabilitation program or subsequently influence the plan of care. ATTESTATION: Considering all the information above, it is my best judgment that this patient requires intensive rehabilitation therapy as described above and an inpatient hospital environment due to the complexity of nursing, medical, and rehabilitation needs required by the patient. Furthermore, this patient can reasonably be expected to participate in an benefit from an inpatient rehabilitation stay with an interdisciplinary team approach to the delivery of rehabilitation care under the direction and supervision of rehabilitation physician. PROGNOSIS: Excellent ESTIMATED LENGTH OF STAY:7-10 days. PROJECTED DISCHARGE DESTINATION: Home with family support and any durable me dical equipment required to increase functional safety and mobility. TIME SPENT COUNSELING AND COORDINATING INITIAL CARE: Greater than 70 minutes. Vital Signs Vital Sign - Last 24 Hours 03/04/20 03/04/20 03/04/20 03/04/20 18:09 18:32 20:00 23:59 Temp 97.5 98.3 Pulse 65 65 72 77 Resp 18 18 B/P (MAP) 128/66 128/66 (86) 137/86 (103) 142/86 Pulse Ox 99 95 O2 Delivery Room Air Room Air 03/04/20 03/05/20 03/05/20 03/05/20 23:59 04:00 05:43 05:51 Temp 98.0 Pulse 77 69 75 75 Resp 18 B/P (MAP) 142/86 (104) 134/70 (91) 138/84 (102) 138/84 Pulse Ox 96 O2 Delivery Room Air 03/05/20 08:26 Pulse 75 B/P (MAP) 130/84 Laboratory Data CBC/BMP Laboratory Tests 03/05/20 06:47 Labs 24H Laboratory Tests 2 03/05/20 06:47: Immature Granulocyte % (Auto) 2.3, Neutrophils (%) (Auto) 43.5, Lymphocytes (%) (Auto) 13.8L, Monocytes (%) (Auto) 14.6H, Eosinophils (%) (Auto) 24.5H, Basophils (%) (Auto) 1.3H, Neutrophils # (Auto) 4.8, Lymphocytes # (Auto) 1.5, Monocytes # (Auto) 1.6H, Eosinophils # (Auto) 2.7H, Basophils # (Auto) 0.1, Nucleated Red Blood Cells % (auto) 0.0, Anion Gap 7L, Glomerular Filtration Rate > 60.0, Calcium Level 9.2, Magnesium Level 1.7L, Total Bilirubin 0.6, Aspartate Amino Transf (AST/SGOT) 58H, Alanine Aminotransferase (ALT/SGPT) 96H, Alkaline Phosphatase 92, Total Protein 6.3L, Albumin 3.3#, Albumin/Globulin Ratio 1.1 Home Medications Scheduled Atorvastatin Calcium (Atorvastatin Calcium) 20 Mg Tablet, 20 MG PO QHS, (Reported) Budesonide/Formoterol (Symbicort 160-4.5 Mcg Inhaler) 6 Gm Hfa.aer.ad, 2 PUFF INH BID, (Reported) Diltiazem Hcl (Cardizem Cd) 360 Mg Cap.er.24h, 360 MG PO DAILY, (Reported) Diphenhydramine HCl (Benadryl) 25 Mg Capsule, 25 MG PO ASDIRECTED, (Reported) Folic Acid (Folic Acid) 1 Mg Tablet, 1 MG PO DAILY Furosemide (Furosemide) 40 Mg Tablet, 40 MG PO DAILY Loratadine (Loratadine) 10 Mg Tablet, 10 MG PO DAILY, (Reported) Magnesium Oxide (Magnesium Oxide) 400 Mg Tablet, 400 MG PO BID Metoprolol Succinate (Metoprolol Succinate) 200 Mg Tab.er.24h, 200 MG PO DAILY, (Reported) Multivitamins (Thera M Plus Tablet) 1 Each Tablet, 1 TAB PO DAILY Pantoprazole Sodium (Pantoprazole Sodium) 40 Mg Tablet.dr, 40 MG PO DAILY Potassium Chloride (Klor-Con M10) 10 Meq Tab.er.prt, 20 MEQ PO DAILY Scheduled PRN Albuterol Sulfate (Proair Hfa) 8.5 Gm Hfa.aer.ad, 2 PUFF INH Q4-6HP PRN for wheezing, (Reported) Allergies Coded Allergies: latex (Verified Allergy, Unknown, 02/28/20) A-FIB/CHADSVASC A-FIB History Current/History of A-Fib/PAF?: No JENS VIZCAINO MD Mar 05, 2020 12:15
[2020-03-05 14:00] VITALS: BP 121/58
--- NOTE | 2020-03-05 14:10 | IPNPDOC ---
Text Note Date of Service The patient was seen on 03/05/20. NOTE Subjective: Patient is a 69-year-old male with a PMHx of HTN, COPD and history of alcohol use who presented to the ER and [facility] because of confusion. Patient had lab work drawn at that hospital that revealed hyponatremia and patient was transferred to [facility] for further evaluation and nephrology consultation. Patient was admitted on 02/27 and discharged to ARU on 03/04 for further physical therapy and rehabilitation Patient was seen and examined at the bedside. Patient denies chest pain, shortness of breath or palpitations. Denies nausea, vomiting, abdominal pain, diarrhea, or urinary discomfort. He does report some right hip pain that is limiting his physical therapy. He reports that this is a chronic pain for him. Objective: Vitals (See below) General: Lying in bed, no acute distress, comfortable, AAOx3 HEENT: NC, AT CVS: +S1S2 Lungs: Fair air entry b/l, palpitations, free of rhonchi, crackles or wheezing Abdomen: Soft, ND, NT Extremities: Lower extremities are without any evidence of significant edema, - Calf tenderness Assessment and plan: Hyponatremia - likely 2/2 hypotonic euvolemic / hypovolemic etiology, possibly 2/2 medications / alcohol - Oriented to person / time / place - Na remains stable - Allow slow rise - c/w 2000 cc fluid restriction and Furosemide - Continue with physical therapy and occupational therapy as per acute rehabilitation HTN - BP well controlled - c/w Diltiazem and Metoprolol from outpatient setting with holding parameters DLP - c/w Atorvastatin Alcohol abuse history - c/w MVI, Thiamine, Folate Transaminitis - possibly 2/2 ETOH - Counts have had significant improvement - Liver US 02/28: Heterogeneous echotexture of the liver. No liver mass is seen. No biliary dilatation. Mild gallbladder sludge. - Hepatitis profile negative Anemia - Hg appears stable - no evidence of bleed GERD - c/w Protonix DVT prophylaxis - c/w Heparin Disposition: - Continue with physical therapy and occupational therapy as per ARU VS,Fishbone, I+O VS, Fishbone, I+O Laboratory Tests 03/05/20 06:47 Vital Signs Date Time Temp Pulse Resp B/P (MAP) Pulse Ox O2 Delivery O2 Flow Rate FiO2 03/05/20 12:10 70 122/80 03/05/20 04:00 98.0 18 96 Room Air I&O- Last 24 Hours up to 6 AM 03/05/20 06:00 Intake Total 0 ml Output Total 0 ml Balance 0 ml SHANE CRAWFORD MD Mar 05, 2020 14:10
[2020-03-05 20:00] VITALS: BP 140/75
[2020-03-05] MEDS: SENNA 8.6 MG TAB (SENOKOT) PO SCH (20:46)
[2020-03-05] MEDS: ATORVASTATIN 20 MG TAB PO SCH (20:46)
[2020-03-06] MEDS: ACETAMINOPHEN TAB 650MG DOSE (2X325MG) PO PRN ×2 (03:46→21:43)
[2020-03-06 06:00] VITALS: BP 149/75
[2020-03-06] MEDS: METOPROLOL TART 50 MG TAB PO SCH ×3 (06:08→18:06)
[2020-03-06] MEDS: IPRATROPIUM 0.5MG/ALBUTEROL 2.5MG INH SOL UD 3ML (DUONEB)(J7620) NEB SCH ×3 (08:00→19:58)
[2020-03-06] MEDS: HEPARIN SOD (PORCINE) 5000UNITS/ML VIAL (J1644 PER 1000UNITS) SC SCH ×2 (08:07→21:24)
[2020-03-06] MEDS: MULTIVITAMINS/MINERALS THERAP 1 TAB PO SCH (08:07)
[2020-03-06] MEDS: diltiaZEM **CD** 180 MG CAP PO SCH (08:07)
[2020-03-06] MEDS: POTASSIUM CHLORIDE 10 MEQ SR TABLET PO SCH (08:07)
[2020-03-06] MEDS: DOCUSATE SODIUM 100 MG CAP PO SCH ×2 (08:07→21:24)
[2020-03-06] MEDS: PANTOPRAZOLE 40MG TAB (PROTONIX) PO SCH (08:07)
[2020-03-06] MEDS: FUROSEMIDE 40 MG TAB PO SCH (08:08)
[2020-03-06] MEDS: FOLIC ACID 1 MG TAB PO SCH (08:08)
[2020-03-06] MEDS: REMEDY PHYTOPLEX Z-GUARD PASTE 113GM TUBE (FROM STOREROOM PRODUCT) TOP SCH ×3 (08:08→21:24)
[2020-03-06] MEDS: THIAMINE 100 MG TAB PO SCH (08:08)
[2020-03-06] MEDS: MAGNESIUM OXIDE 400 MG TAB (MAG-OX) PO SCH ×2 (08:08→21:23)
[2020-03-06] MEDS: SYMBICORT 160/4.5MCG INHALER 6GM INH SCH ×2 (08:37→19:58)
[2020-03-06 15:20] VITALS: BP 136/65
[2020-03-06 20:00] VITALS: BP 139/77
[2020-03-06] MEDS: SENNA 8.6 MG TAB (SENOKOT) PO SCH (21:23)
[2020-03-06] MEDS: ATORVASTATIN 20 MG TAB PO SCH (21:24)
[2020-03-07 00:47] VITALS: BP_SYST 172; BP_SYST 205; BP_DIAS 88; BP_DIAS 98
[2020-03-07] MEDS: METOPROLOL TART 50 MG TAB PO SCH ×4 (00:53→17:00)
[2020-03-07] MEDS: ACETAMINOPHEN TAB 650MG DOSE (2X325MG) PO PRN ×3 (04:01→19:41)
[2020-03-07] MEDS ORDERED: IBUPROFEN 400 MG TAB PO ONE (05:00)
[2020-03-07 05:05] VITALS: BP 172/85
[2020-03-07] MEDS: IPRATROPIUM 0.5MG/ALBUTEROL 2.5MG INH SOL UD 3ML (DUONEB)(J7620) NEB SCH ×3 (07:38→18:26)
[2020-03-07] MEDS: SYMBICORT 160/4.5MCG INHALER 6GM INH SCH ×2 (07:38→18:26)
[2020-03-07] MEDS: HEPARIN SOD (PORCINE) 5000UNITS/ML VIAL (J1644 PER 1000UNITS) SC SCH ×2 (08:29→19:42)
[2020-03-07] MEDS: FOLIC ACID 1 MG TAB PO SCH (08:30)
[2020-03-07] MEDS: POTASSIUM CHLORIDE 10 MEQ SR TABLET PO SCH (08:30)
[2020-03-07] MEDS: MAGNESIUM OXIDE 400 MG TAB (MAG-OX) PO SCH ×2 (08:30→19:42)
[2020-03-07] MEDS: diltiaZEM **CD** 180 MG CAP PO SCH (08:31)
[2020-03-07] MEDS: MULTIVITAMINS/MINERALS THERAP 1 TAB PO SCH (08:31)
[2020-03-07] MEDS: DOCUSATE SODIUM 100 MG CAP PO SCH ×2 (08:31→19:44)
[2020-03-07] MEDS: FUROSEMIDE 40 MG TAB PO SCH (08:31)
[2020-03-07] MEDS: PANTOPRAZOLE 40MG TAB (PROTONIX) PO SCH (08:31)
[2020-03-07] MEDS: THIAMINE 100 MG TAB PO SCH (08:31)
[2020-03-07] MEDS: REMEDY PHYTOPLEX Z-GUARD PASTE 113GM TUBE (FROM STOREROOM PRODUCT) TOP SCH ×3 (08:32→19:43)
[2020-03-07 14:00] VITALS: BP 129/70
[2020-03-07] MEDS: ATORVASTATIN 20 MG TAB PO SCH (19:41)
[2020-03-07] MEDS: SENNA 8.6 MG TAB (SENOKOT) PO SCH (19:44)
[2020-03-07 20:00] VITALS: BP 190/100
[2020-03-07 20:50] VITALS: BP 138/72
[2020-03-08] MEDS: METOPROLOL TART 50 MG TAB PO SCH ×4 (00:31→17:17)
[2020-03-08 06:00] VITALS: BP 170/90
[2020-03-08 06:05] VITALS: BP 136/72
[2020-03-08] MEDS: SYMBICORT 160/4.5MCG INHALER 6GM INH SCH ×2 (06:25→19:27)
[2020-03-08] MEDS: IPRATROPIUM 0.5MG/ALBUTEROL 2.5MG INH SOL UD 3ML (DUONEB)(J7620) NEB SCH ×3 (06:26→19:27)
[2020-03-08 06:50] LABS: BASO # 0.1 10^3/uL (0.0-0.2); EOS # 1.2 10^3/uL (0.0-0.5); EOS % 14.6 % (0.0-3.0); HEMATOCRIT 29.7 % (42.0-52.0); HEMOGLOBIN 10.2 g/dl (13.5-17.5); LYMPH # 1.4 10^3/uL (1.5-5.0); LYMPH % 16.5 % (24.0-44.0); MEAN CORPUSCULAR HEMOGLOBIN 32.8 pg (27.0-33.0); MEAN CORPUSCULAR HGB CONC 34.3 g/dl (32.0-36.5); MEAN CORPUSCULAR VOLUME 95.5 fl (80.0-96.0); MONO # 1.4 10^3/uL (0.0-0.8); MONO % 17.1 % (0.0-5.0); NEUTROPHILS # 4.1 10^3/uL (1.5-8.5); NEUTROPHILS % 49.6 % (36.0-66.0); PLATELET COUNT, AUTOMATED 433 10^3/uL (150-450); RED BLOOD COUNT 3.11 10^6/uL (4.30-6.10); WHITE BLOOD COUNT 8.3 10^3/uL (4.0-10.0)
[2020-03-08 07:13] LABS: BLOOD UREA NITROGEN 15 MG/DL (7-18); CALCIUM LEVEL 9.1 MG/DL (8.8-10.2); CARBON DIOXIDE LEVEL 28 MEQ/L (21-32); CHLORIDE LEVEL 98 MEQ/L (98-107); GLOMERULAR FILTRATION RATE > 60.0 (>49); GLUCOSE, FASTING 85 MG/DL (70-100); MAGNESIUM LEVEL 1.6 MG/DL (1.8-2.4); SODIUM LEVEL 132 MEQ/L (136-145)
[2020-03-08] MEDS: FOLIC ACID 1 MG TAB PO SCH (08:55)
[2020-03-08] MEDS: THIAMINE 100 MG TAB PO SCH (08:55)
[2020-03-08] MEDS: MAGNESIUM OXIDE 400 MG TAB (MAG-OX) PO SCH ×2 (08:55→21:40)
[2020-03-08] MEDS: PANTOPRAZOLE 40MG TAB (PROTONIX) PO SCH (08:55)
[2020-03-08] MEDS: DOCUSATE SODIUM 100 MG CAP PO SCH ×2 (08:55→21:41)
[2020-03-08] MEDS: FUROSEMIDE 40 MG TAB PO SCH (08:55)
[2020-03-08] MEDS: diltiaZEM **CD** 180 MG CAP PO SCH (08:55)
[2020-03-08] MEDS: MULTIVITAMINS/MINERALS THERAP 1 TAB PO SCH (08:55)
[2020-03-08] MEDS: POTASSIUM CHLORIDE 10 MEQ SR TABLET PO SCH (08:56)
[2020-03-08] MEDS: REMEDY PHYTOPLEX Z-GUARD PASTE 113GM TUBE (FROM STOREROOM PRODUCT) TOP SCH ×3 (08:56→21:00)
[2020-03-08] MEDS: HEPARIN SOD (PORCINE) 5000UNITS/ML VIAL (J1644 PER 1000UNITS) SC SCH ×2 (08:56→21:40)
[2020-03-08] MEDS: ACETAMINOPHEN TAB 650MG DOSE (2X325MG) PO PRN ×2 (08:58→13:38)
[2020-03-08 14:00] VITALS: BP 143/65
--- NOTE | 2020-03-08 14:50 | IPNPDOC ---
PM&R Progress Note DATE OF SERVICE: Mar 08, 2020 Automation Control Integrator Progress Note Subjective: Patient reporting right hip pain that is improved with the use of a walker and tylenol. He is eager to go home. REVIEW OF SYSTEMS: The following is a completed review of systems and has been reviewed. Review of systems otherwise unremarkable. PAIN: Patient self reports right hip pain EYES: No recent vision changes EARS, NOSE, & THROAT: No throat pain, or dysphagia, or rhinorrhea CARDIOVASCULAR: Denies chest pain or palpitations PULMONARY: Denies shortness of breath GASTROINTESTINAL: Denies constipation/diarrhea GENITOURINARY: denies dysuria MUSCULOSKELETAL: generalized weakness NEUROLOGICAL:+bilat EU tremor HEMATOLOGICAL: denies easy bruising SKIN: no rash PSYCHIATRIC: Unremarkable All other review of systems found to be negative. PHYSICAL EXAMINATION: VITAL SIGNS: Please see below. GENERAL: Pleasant and cooperative. No acute distress. HEENT: PERRL. Extraocular movements intact. Clear conjunctiva CARDIOVASCULAR: Regular rate and rhythm. No murmurs, rubs, or gallops LUNGS: Clear to auscultation bilaterally. No wheezes. No rhonchi ABDOMEN: Soft, nontender, nondistended. Positive bowel sounds. Normal active bowel sounds NEUROLOGICAL: Alert and oriented times three. Cranial nerves II through XII grossly intact. Sensation grossly intact +bilat UE tremor EXTREMITIES: 5\5 strength bilateral upper extremities. 5\5 strength right lower extremity. 5/5 strength in left lower extremity. SKIN: no rash ASSESSMENT:69-year-old M with past medical history of COPD, HTN who presents status post encephalopathy due to ETOH withdrawal and electrolyte imbalance PLAN: 1. Rehab- PT/OT advance ADLs and gait, strengthen/stretch/maintain ROM all 4 limbs, contact guard-standby assist for ambulation and ADLs 2. Neuro- s/p recent episodes of encephalopathy due to electrolyte imbalance and ETOH withdrawal causing gait and mobility impairment -c/u fluid fluid restrict for hyponatremia -thiamine and folic acid for ETOH abuse 3. Cardiac-HTN c/u cardizem and metoprolol -bilat LE edema c/u fluid restriction, daily weights, and Lasix, medicine consulted to assist in overall management -HLD c/u statin -medicine consulted to assist in overall management 4. Resp: hx of COPD, encourage incentive spirometry, Duonebs, Symbicort -patient recently treated for atypical pneumonia a [facility] 5. Hypokalemia- c/u daily supplements, c/u to replete Mg with oral agents, will increase oral dosing to 800BID and recheck Mg level Sunday 6. Hyponatremia- c/u fluid restriction- Na 132 improving 7. DVT ppx: heparin and TEDs 8. GI ppx: protonix 9. Pain: tylneol 1000mg TID for right hip pain, lidoderm patch added 10. Dispo: 03-11-20 to home, progressing towards goals Allergies Coded Allergies: latex (Verified Allergy, Unknown, 02/28/20) Vital Signs Vital Signs Date Time Temp Pulse Resp B/P (MAP) Pulse Ox O2 Delivery O2 Flow Rate FiO2 03/08/20 14:00 98.4 76 20 143/65 (91) 100 Room Air Laboratory Data CBC/BMP Laboratory Tests 03/08/20 06:09 Labs 24H Laboratory Tests 2 03/08/20 06:09: Immature Granulocyte % (Auto) 1.2, Neutrophils (%) (Auto) 49.6, Lymphocytes (%) (Auto) 16.5L, Monocytes (%) (Auto) 17.1H, Eosinophils (%) (Auto) 14.6H, Basophils (%) (Auto) 1.0, Neutrophils # (Auto) 4.1, Lymphocytes # (Auto) 1.4L, Monocytes # (Auto) 1.4H, Eosinophils # (Auto) 1.2H, Basophils # (Auto) 0.1, Nucleated Red Blood Cells % (auto) 0.0, Anion Gap 6L, Glomerular Filtration Rate > 60.0, Calcium Level 9.1, Magnesium Level 1.6L Current Medications Current Medications Current Medications Medications (Trade) Dose Ordered Sig/Anup Route PRN Reason Start Time Stop Time Status Last Admin Dose Admin Acetaminophen (Tylenol Tab) 650 mg Q4HP PRN PO fever/MILD PAIN (PS 1-4) 03/04/20 16:45 03/08/20 13:38 Albuterol/ Ipratropium (Duoneb (Ipr 0.5mg/Alb 2.5mg)) 3 ml RTID NEB 03/04/20 20:00 03/08/20 13:22 Atorvastatin Calcium (Lipitor) 20 mg QHS PO 03/04/20 21:00 03/07/20 19:41 Bisacodyl (Dulcolax Suppository) 10 mg DAILYPRN PRN [place] CONSTIPATION 03/04/20 16:45 Budesonide/ Formoterol Fumarate (Symbicort 160/ 4.5mcg) 2 puff BID INH 03/04/20 21:00 03/08/20 06:25 Diltiazem HCl (Cardizem Cd) 360 mg DAILY PO 03/05/20 09:00 03/08/20 08:55 Diphenhydramine HCl (Benadryl) 25 mg STAT STAT PO 03/05/20 10:20 03/05/20 10:25 DC 03/05/20 10:32 Docusate Sodium (Colace) 100 mg BID PO 03/04/20 21:00 03/08/20 08:55 Folic Acid (Folic Acid) 1 mg DAILY PO 03/05/20 09:00 03/08/20 08:55 Furosemide (Lasix) 40 mg DAILY PO 03/05/20 09:00 03/08/20 08:55 Heparin Sodium (Porcine) (Heparin) 5,000 units Q12H SC 03/04/20 21:00 03/08/20 08:56 Magnesium Oxide (Mag-Ox) 400 mg BID PO 03/04/20 21:00 03/08/20 09:44 DC 03/08/20 08:55 Magnesium Oxide (Mag-Ox) 800 mg BID PO 03/08/20 21:00 Metoprolol Tartrate (Lopressor) 50 mg Q6H PO 03/04/20 18:00 03/08/20 11:16 Multivitamins (Theragram-M) 1 tab DAILY PO 03/05/20 09:00 03/08/20 08:55 Pantoprazole Sodium (Protonix) 40 mg DAILY PO 03/05/20 09:00 03/08/20 08:55 Potassium Chloride (Micro-K Extencaps) 20 meq DAILY PO 03/05/20 09:00 03/08/20 08:56 Senna (Senokot) 1 tab QHS PO 03/04/20 21:00 03/06/20 21:23 Thiamine HCl (Thiamine HCl) 100 mg DAILY PO 03/05/20 09:00 03/08/20 08:55 JENS VIZCAINO MD Mar 08, 2020 14:50
[2020-03-08] MEDS: ACETAMINOPHEN 500 MG TAB PO SCH ×2 (14:52→21:41)
[2020-03-08] MEDS: LIDOCAINE 5% (LIDODERM) PATCH TD SCH (15:04)
[2020-03-08 20:00] VITALS: BP 168/76
[2020-03-08] MEDS: ATORVASTATIN 20 MG TAB PO SCH (21:41)
[2020-03-08] MEDS: **NOTE PATIENT COMMENT** MISC XX SCH (21:41)
[2020-03-08] MEDS: SENNA 8.6 MG TAB (SENOKOT) PO SCH (21:41)
[2020-03-09 06:00] VITALS: BP 162/87
[2020-03-09] MEDS: SYMBICORT 160/4.5MCG INHALER 6GM INH SCH ×2 (06:06→19:50)
[2020-03-09] MEDS: METOPROLOL TART 50 MG TAB PO SCH ×4 (06:35→17:44)
[2020-03-09] MEDS: DOCUSATE SODIUM 100 MG CAP PO SCH ×2 (07:33→20:14)
[2020-03-09] MEDS: THIAMINE 100 MG TAB PO SCH (07:33)
[2020-03-09] MEDS: PANTOPRAZOLE 40MG TAB (PROTONIX) PO SCH (07:33)
[2020-03-09] MEDS: HEPARIN SOD (PORCINE) 5000UNITS/ML VIAL (J1644 PER 1000UNITS) SC SCH ×2 (07:33→20:14)
[2020-03-09] MEDS: MULTIVITAMINS/MINERALS THERAP 1 TAB PO SCH (07:33)
[2020-03-09] MEDS: FOLIC ACID 1 MG TAB PO SCH (07:33)
[2020-03-09] MEDS: MAGNESIUM OXIDE 400 MG TAB (MAG-OX) PO SCH ×2 (07:34→20:14)
[2020-03-09] MEDS: FUROSEMIDE 40 MG TAB PO SCH (07:34)
[2020-03-09] MEDS: ACETAMINOPHEN 500 MG TAB PO SCH ×3 (07:34→20:14)
[2020-03-09] MEDS: POTASSIUM CHLORIDE 10 MEQ SR TABLET PO SCH (07:34)
[2020-03-09] MEDS: REMEDY PHYTOPLEX Z-GUARD PASTE 113GM TUBE (FROM STOREROOM PRODUCT) TOP SCH ×3 (07:35→20:15)
[2020-03-09] MEDS: LIDOCAINE 5% (LIDODERM) PATCH TD SCH (07:35)
[2020-03-09] MEDS: diltiaZEM **CD** 180 MG CAP PO SCH (07:35)
[2020-03-09] MEDS: IPRATROPIUM 0.5MG/ALBUTEROL 2.5MG INH SOL UD 3ML (DUONEB)(J7620) NEB SCH ×3 (08:00→19:50)
[2020-03-09] MEDS ORDERED: MAG400TA PO (11:48)
[2020-03-09] MEDS ORDERED: FURO40TA2 PO (11:48)
[2020-03-09] MEDS ORDERED: CARD180C4 PO (11:48)
[2020-03-09] MEDS ORDERED: SYMB16INH INH (11:48)
[2020-03-09] MEDS ORDERED: METO200T28 PO (11:48)
[2020-03-09] MEDS ORDERED: PANT40TA3 PO (11:48)
[2020-03-09] MEDS ORDERED: PROAAER10 INH (11:48)
[2020-03-09] MEDS ORDERED: FOLI1TAB11 PO (11:48)
[2020-03-09] MEDS ORDERED: THIA100TA PO (11:48)
[2020-03-09] MEDS ORDERED: KLOR10TA76 PO (11:48)
[2020-03-09] MEDS ORDERED: ATOR1TAB21 PO (11:48)
[2020-03-09 14:00] VITALS: BP 146/72
--- NOTE | 2020-03-09 15:02 | IPNPDOC ---
PM&R Progress Note DATE OF SERVICE: Mar 09, 2020 Coagulator Progress Note Subjective: Patient reporting he would like to go home as soon as possible and agreeable to room privileges with a RW today. REVIEW OF SYSTEMS: The following is a completed review of systems and has been reviewed. Review of systems otherwise unremarkable. PAIN: Patient self reports right hip pain EYES: No recent vision changes EARS, NOSE, & THROAT: No throat pain, or dysphagia, or rhinorrhea CARDIOVASCULAR: Denies chest pain or palpitations PULMONARY: Denies shortness of breath GASTROINTESTINAL: Denies constipation/diarrhea GENITOURINARY: denies dysuria MUSCULOSKELETAL: generalized weakness NEUROLOGICAL:+bilat EU tremor HEMATOLOGICAL: denies easy bruising SKIN: no rash PSYCHIATRIC: Unremarkable All other review of systems found to be negative. PHYSICAL EXAMINATION: VITAL SIGNS: Please see below. GENERAL: Pleasant and cooperative. No acute distress. HEENT: PERRL. Extraocular movements intact. Clear conjunctiva CARDIOVASCULAR: Regular rate and rhythm. No murmurs, rubs, or gallops LUNGS: Clear to auscultation bilaterally. No wheezes. No rhonchi ABDOMEN: Soft, nontender, nondistended. Positive bowel sounds. Normal active bowel sounds NEUROLOGICAL: Alert and oriented times three. Cranial nerves II through XII grossly intact. Sensation grossly intact +bilat UE tremor EXTREMITIES: 5\5 strength bilateral upper extremities. 5\5 strength right lower extremity. 5/5 strength in left lower extremity. SKIN: no rash ASSESSMENT:69-year-old M with past medical history of COPD, HTN who presents status post encephalopathy due to ETOH withdrawal and electrolyte imbalance PLAN: 1. Rehab- PT/OT advance ADLs and gait, strengthen/stretch/maintain ROM all 4 limbs, contact guard-standby assist for ambulation and ADLs-room privileges 2. Neuro- s/p recent episodes of encephalopathy due to electrolyte imbalance and ETOH withdrawal causing gait and mobility impairment -c/u fluid fluid restrict for hyponatremia -thiamine and folic acid for ETOH abuse 3. Cardiac-HTN c/u cardizem and metoprolol -bilat LE edema c/u fluid restriction, daily weights, and Lasix, medicine consulted to assist in overall management -HLD c/u statin -medicine consulted to assist in overall management 4. Resp: hx of COPD, encourage incentive spirometry, Duonebs, Symbicort -patient recently treated for atypical pneumonia a [facility] 5. Hypokalemia- c/u daily supplements, c/u to replete Mg with oral agents, will increase oral dosing to 800BID and recheck Mg level Sunday 6. Hyponatremia- c/u fluid restriction- Na 132 improving 7. DVT ppx: heparin and TEDs 8. GI ppx: protonix 9. Pain: tylneol 1000mg TID for right hip pain, lidoderm patch added 10. Dispo: 03-10-20 to home, progressing towards goals Allergies Coded Allergies: latex (Verified Allergy, Unknown, 02/28/20) Vital Signs Vital Signs Date Time Temp Pulse Resp B/P (MAP) Pulse Ox O2 Delivery O2 Flow Rate FiO2 03/09/20 14:00 98.7 72 20 146/72 (96) 99 Room Air Current Medications Current Medications Current Medications Medications (Trade) Dose Ordered Sig/Anup Route PRN Reason Start Time Stop Time Status Last Admin Dose Admin Acetaminophen (Tylenol Tab) 650 mg Q4HP PRN PO fever/MILD PAIN (PS 1-4) 03/04/20 16:45 03/08/20 14:47 DC 03/08/20 13:38 Acetaminophen (Tylenol Tab) 1,000 mg TID PO 03/08/20 16:00 03/09/20 07:34 Albuterol/ Ipratropium (Duoneb (Ipr 0.5mg/Alb 2.5mg)) 3 ml RTID NEB 03/04/20 20:00 03/09/20 13:04 Atorvastatin Calcium (Lipitor) 20 mg QHS PO 03/04/20 21:00 03/08/20 21:41 Bisacodyl (Dulcolax Suppository) 10 mg DAILYPRN PRN [place] CONSTIPATION 03/04/20 16:45 Budesonide/ Formoterol Fumarate (Symbicort 160/ 4.5mcg) 2 puff BID INH 03/04/20 21:00 03/09/20 06:06 Diltiazem HCl (Cardizem Cd) 360 mg DAILY PO 03/05/20 09:00 03/09/20 07:35 Diphenhydramine HCl (Benadryl) 25 mg STAT STAT PO 03/05/20 10:20 03/05/20 10:25 DC 03/05/20 10:32 Docusate Sodium (Colace) 100 mg BID PO 03/04/20 21:00 03/09/20 07:33 Folic Acid (Folic Acid) 1 mg DAILY PO 03/05/20 09:00 03/09/20 07:33 Furosemide (Lasix) 40 mg DAILY PO 03/05/20 09:00 03/09/20 07:34 Heparin Sodium (Porcine) (Heparin) 5,000 units Q12H SC 03/04/20 21:00 03/09/20 07:33 Lidocaine (Lidoderm Patch) 1 patch DAILY TD 03/08/20 09:00 03/09/20 07:35 Magnesium Oxide (Mag-Ox) 400 mg BID PO 03/04/20 21:00 03/08/20 09:44 DC 03/08/20 08:55 Magnesium Oxide (Mag-Ox) 800 mg BID PO 03/08/20 21:00 03/09/20 07:34 Metoprolol Tartrate (Lopressor) 50 mg Q6H PO 03/04/20 18:00 03/09/20 11:23 Multivitamins (Theragram-M) 1 tab DAILY PO 03/05/20 09:00 03/09/20 07:33 Non-Formulary Medication ( See Comment Field Below ) REMOVE LIDODERM PATCH DAILY@21 XX 03/08/20 21:00 03/08/20 21:41 Pantoprazole Sodium (Protonix) 40 mg DAILY PO 03/05/20 09:00 03/09/20 07:33 Potassium Chloride (Micro-K Extencaps) 20 meq DAILY PO 03/05/20 09:00 03/09/20 07:34 Senna (Senokot) 1 tab QHS PO 03/04/20 21:00 03/08/20 21:41 Thiamine HCl (Thiamine HCl) 100 mg DAILY PO 03/05/20 09:00 03/09/20 07:33 JENS VIZCAINO MD Mar 09, 2020 15:02
[2020-03-09] MEDS: ATORVASTATIN 20 MG TAB PO SCH (20:14)
[2020-03-09] MEDS: SENNA 8.6 MG TAB (SENOKOT) PO SCH (20:14)
[2020-03-09] MEDS: **NOTE PATIENT COMMENT** MISC XX SCH (20:15)
[2020-03-10] VITALS: BP 173/83
[2020-03-10] MEDS: METOPROLOL TART 50 MG TAB PO SCH ×3 (00:21→12:39)
[2020-03-10 06:00] VITALS: BP 188/89
[2020-03-10] MEDS: SYMBICORT 160/4.5MCG INHALER 6GM INH SCH (06:24)
[2020-03-10] MEDS: IPRATROPIUM 0.5MG/ALBUTEROL 2.5MG INH SOL UD 3ML (DUONEB)(J7620) NEB SCH (06:25)
[2020-03-10 07:46] LABS: BLOOD UREA NITROGEN 11 MG/DL (7-18); CALCIUM LEVEL 8.9 MG/DL (8.8-10.2); CARBON DIOXIDE LEVEL 27 MEQ/L (21-32); CHLORIDE LEVEL 98 MEQ/L (98-107); CREATININE FOR GFR 0.71 MG/DL (0.70-1.30); GLOMERULAR FILTRATION RATE > 60.0 (>49); GLUCOSE, FASTING 83 MG/DL (70-100); MAGNESIUM LEVEL 1.6 MG/DL (1.8-2.4); POTASSIUM SERUM 3.8 MEQ/L (3.5-5.1); SODIUM LEVEL 132 MEQ/L (136-145)
[2020-03-10] MEDS: HEPARIN SOD (PORCINE) 5000UNITS/ML VIAL (J1644 PER 1000UNITS) SC SCH (09:00)
[2020-03-10] MEDS: REMEDY PHYTOPLEX Z-GUARD PASTE 113GM TUBE (FROM STOREROOM PRODUCT) TOP SCH (09:00)
[2020-03-10] MEDS: LIDOCAINE 5% (LIDODERM) PATCH TD SCH (09:00)
[2020-03-10] MEDS: POTASSIUM CHLORIDE 10 MEQ SR TABLET PO SCH (09:49)
[2020-03-10] MEDS: THIAMINE 100 MG TAB PO SCH (09:50)
[2020-03-10] MEDS: PANTOPRAZOLE 40MG TAB (PROTONIX) PO SCH (09:50)
[2020-03-10] MEDS: FOLIC ACID 1 MG TAB PO SCH (09:50)
[2020-03-10] MEDS: ACETAMINOPHEN 500 MG TAB PO SCH (09:50)
[2020-03-10] MEDS: DOCUSATE SODIUM 100 MG CAP PO SCH (09:51)
[2020-03-10] MEDS: diltiaZEM **CD** 180 MG CAP PO SCH (09:51)
[2020-03-10] MEDS: FUROSEMIDE 40 MG TAB PO SCH (09:51)
[2020-03-10] MEDS: MULTIVITAMINS/MINERALS THERAP 1 TAB PO SCH (09:51)
[2020-03-10] MEDS: MAGNESIUM OXIDE 400 MG TAB (MAG-OX) PO SCH (09:51)
[2020-03-10] MEDS ORDERED: NORV5TAB PO (09:55)
[2020-03-10] MEDS ORDERED: amLODIPine 10 MG TAB PO ONE (10:00)
[2020-03-10 12:16] VITALS: BP 181/90
[2020-03-10 12:39] VITALS: BP 161/86
== END 2020-03-10 12:55 | disposition home health service (06) | DRG 92 ==
LOC: M PM&R 17:00
PROVIDERS: ADMIT Physical Medicine & Rehabilitation; ATTEND Physical Medicine & Rehabilitation
DX: R26.89 Other abnormalities of gait and mobility (principal); E87.1 Hypo-osmolality and hyponatremia; J44.9 Chronic obstructive pulmonary disease, unspecified; I10 Essential (primary) hypertension; G89.29 Other chronic pain; K21.9 Gastro-esophageal reflux disease without esophagitis; R60.0 Localized edema; R25.1 Tremor, unspecified; E87.6 Hypokalemia; D64.9 Anemia, unspecified; M25.551 Pain in right hip; Z91.040 Latex allergy status; Z87.891 Personal history of nicotine dependence; Z79.899 Other long term (current) drug therapy

== ENCOUNTER → 2021-06-21 | Outpatient (CLI) | payer OTHER ==
[~2021-06-21] MED LIST changes: +CARD180C4 PO; -KLOR10TA76 PO; -LISI40TA PO; +LISI40TA4 PO; -MAG400TA PO; +MAGN400T35 PO; +NORV5TAB PO; +PANT40TA29 PO; -PANT40TA3 PO; +POTA-136 PO; +THIA100TA PO
--- NOTE | 2021-06-21 08:32 | REP ---
INDICATION: AAA SCREENING / NICOTINE DEPENDENCE CT 1ST US 2ND. COMPARISON: None. TECHNIQUE: Real-time sonographic evaluation of the abdominal aorta performed. FINDINGS: There is no sonographic evidence of abdominal aortic aneurysm. Maximum AP diameter of abdominal aorta: Proximal (at diaphragm):1.8 cm. At renal artery level: 1.8 cm Mid abdominal aorta:1.6 cm. Distal abdominal aorta (prebifurcation): 1.5 cm. Maximum AP diameter common iliac arteries: Right: 8 mm. Left: 10mm. IMPRESSION: No sonographic evidence of abdominal aortic aneurysm. <Electronically signed by Tyshawn Gunderson > 06/21/21 0816
--- NOTE | 2021-06-21 10:05 | REP ---
INDICATION: AAA SCREENING / NICOTINE DEPENDANCE CT 1ST US 2ND. COMPARISON: None. TECHNIQUE: Axial noncontrast images from the thoracic inlet to the upper abdomen using low-dose lung screening technique (LDCT). As per the protocol only lung window images were sent to the read station for interpretation. FINDINGS: There is mild biapical pleuroparenchymal scarring. There is mild lung field hyperexpansion. There is a small asymmetric density in the inferior lingula. There is a 9 mm sized pleural base nodular density in the left mid lung zone at the periphery of the major fissure. No other abnormal nodules, masses, or opacities are identified. There is mild cylindrical bronchiectasis. Grossly, the mediastinum and pulmonary carlitos are within normal limits. Grossly, the imaged upper abdomen and imaged osseous structures are within normal limits. IMPRESSION: 1. Likely there is a small patch of subsegmental atelectatic change in the inferior lingula. 2. Small pleural base nodule left mid lung zone as described above. According to the revised Fleischner society criteria this represents a category 4A lesion for which a 3 month follow-up CT is recommended. 3. Mild emphysematous changes with biapical pleuroparenchymal scarring, lung field hyperexpansion, and cylindrical bronchiectasis. <Electronically signed by David Lofton > 06/21/21 1006
== END ==
LOC: M RAD 06:40
PROVIDERS: ATTEND Nurse Practitioner Primary Care
DX: I71.4 Abdominal aortic aneurysm, without rupture (principal); F17.210 Nicotine dependence, cigarettes, uncomplicated

== ENCOUNTER → 2021-11-02 | Outpatient (CLI) | payer OTHER | LOC: M RAD 14:58 | PROVIDERS: ATTEND Nurse Practitioner Primary Care | DX: R91.1 Solitary pulmonary nodule (principal) ==

== ENCOUNTER → 2023-01-30 | Outpatient (CLI) | payer OTHER ==
[~2023-01-30] MED LIST changes: +DIPH-435 PO; -DIPH25CA32 PO
== END ==
LOC: M RAD 08:36
PROVIDERS: ATTEND Family Medicine
DX: Z87.891 Personal history of nicotine dependence (principal)

== ENCOUNTER 2023-03-28 09:54 | Day surgery (SDC) | payer OTHER ==
[~2023-03-28] VITALS: Ht 180.3 cm; Wt 70.8 kg
[~2023-03-28 09:54] MED LIST changes: +BAYE325T13 PO; +BSS IRRIG/VANCO(10MG)/TOBRA(5MG)/EPINEPH(1:1000-0.5CC)500ML BAG-ORONLY IR ONE; +CEFUROXIME 1MG/0.1ML INTRACAMERAL INJ As Ordered ONE; +FURO20TA2 PO; +LIDOCAINE 1% SDV 5ML VIAL As Ordered ONE; +LIDOCAINE 3.5 % 1ML OPHTH TOPICAL GEL OU ONE; +LISI20TA33 PO; +OFLOXACIN 0.3 % (OCUFLOX) OPTH SOL 5ML OD ONE; +PHENYLEPHRINE 10% OPHTH SOL 5ML OD PRN; +VENTAER INH
[2023-03-28] MEDS: TROPICAMIDE 1% OPHTH SOLN 15ML OD SCH ×2 (11:19→11:20)
[2023-03-28] MEDS: PHENYLEPHRINE 2.5% OPHTH SOL 2ML OD SCH ×2 (11:20→11:21)
[2023-03-28] MEDS: CYCLOPENTOLATE 1% OPHTH SOLN 2ML BTL OD SCH ×2 (11:20→11:21)
[2023-03-28] MEDS ORDERED: MIDAZOLAM INJ 2MG/2ML VIAL As Ordered ONE (11:54)
[2023-03-28] MEDS ORDERED: fentaNYL 100 MCG/2 ML INJECTION As Ordered ONE (11:54)
[2023-03-28 12:20] VITALS: BP 150/72; TEMP 97.1; O2SAT 97
== END 2023-03-28 13:09 | disposition home or self-care (01) ==
LOC: M SDC 09:54
PROVIDERS: ATTEND Ophthalmology
DX: H25.11 Age-related nuclear cataract, right eye (principal); K21.9 Gastro-esophageal reflux disease without esophagitis; E78.5 Hyperlipidemia, unspecified; I10 Essential (primary) hypertension; Z86.73 Personal history of transient ischemic attack (TIA), and cerebral infarction without residual deficits; Z91.040 Latex allergy status; Z79.899 Other long term (current) drug therapy
CPT/HCPCS: 66984; J0697; J2250; J3010; V2632

== ENCOUNTER → 2023-05-07 | Day surgery (SDC) | payer OTHER ==
[~2023-05-07] VITALS: Ht 180.3 cm; Wt 72.2 kg
[~2023-05-07] MED LIST changes: +ACET-311 PO; +CYCLOPENTOLATE 1% OPHTH SOLN 2ML BTL OS SCH; +MIDAZOLAM INJ 2MG/2ML VIAL As Ordered ONE; -OFLOXACIN 0.3 % (OCUFLOX) OPTH SOL 5ML OD ONE; +OFLOXACIN 0.3 % (OCUFLOX) OPTH SOL 5ML OS ONE; -PHENYLEPHRINE 10% OPHTH SOL 5ML OD PRN; +PHENYLEPHRINE 10% OPHTH SOL 5ML OS PRN; +PHENYLEPHRINE 2.5% OPHTH SOL 2ML OS SCH; +TROPICAMIDE 1% OPHTH SOLN 15ML OS SCH; +fentaNYL 100 MCG/2 ML INJECTION As Ordered ONE
[2023-05-07 12:55] VITALS: BP 159/72; TEMP 98; O2SAT 99
== END | disposition home or self-care (01) ==
LOC: M SDC 11:28
PROVIDERS: ATTEND Ophthalmology
DX: H25.12 Age-related nuclear cataract, left eye (principal); I10 Essential (primary) hypertension; E78.5 Hyperlipidemia, unspecified; K21.9 Gastro-esophageal reflux disease without esophagitis; Z86.73 Personal history of transient ischemic attack (TIA), and cerebral infarction without residual deficits; J44.9 Chronic obstructive pulmonary disease, unspecified; F17.210 Nicotine dependence, cigarettes, uncomplicated; Z79.899 Other long term (current) drug therapy
CPT/HCPCS: 66984; J0697; J2250; J3010; V2632

== ENCOUNTER → 2024-02-04 | Outpatient (CLI) | payer OTHER ==
[~2024-02-04] MED LIST changes: -BSS IRRIG/VANCO(10MG)/TOBRA(5MG)/EPINEPH(1:1000-0.5CC)500ML BAG-ORONLY IR ONE; -CEFUROXIME 1MG/0.1ML INTRACAMERAL INJ As Ordered ONE; -CYCLOPENTOLATE 1% OPHTH SOLN 2ML BTL OS SCH; -LIDOCAINE 1% SDV 5ML VIAL As Ordered ONE; -LIDOCAINE 3.5 % 1ML OPHTH TOPICAL GEL OU ONE; +METO200T15 PO; -METO200T28 PO; -MIDAZOLAM INJ 2MG/2ML VIAL As Ordered ONE; -OFLOXACIN 0.3 % (OCUFLOX) OPTH SOL 5ML OS ONE; -PHENYLEPHRINE 10% OPHTH SOL 5ML OS PRN; -PHENYLEPHRINE 2.5% OPHTH SOL 2ML OS SCH; -TROPICAMIDE 1% OPHTH SOLN 15ML OS SCH; -fentaNYL 100 MCG/2 ML INJECTION As Ordered ONE
== END ==
LOC: M RAD 06:07
PROVIDERS: ATTEND Nurse Practitioner Family
DX: Z87.891 Personal history of nicotine dependence (principal)

== ENCOUNTER → 2025-05-26 | Outpatient (CLI) | payer OTHER ==
[~2025-05-26] MED LIST changes: +LISI40TA10 PO; -LISI40TA4 PO; +LORA-1164 PO; -LORA-622 PO
== END ==
LOC: M RAD 15:04
PROVIDERS: ATTEND Nurse Practitioner Family
DX: Z87.891 Personal history of nicotine dependence (principal)

== ENCOUNTER → 2025-08-14 | Outpatient (CLI) | payer OTHER ==
[2025-08-14 09:11] LABS: CALCIUM LEVEL 9.4 MG/DL (8.3-10.6); CARBON DIOXIDE LEVEL 30.0 MMOL/L (20-31); CHLORIDE LEVEL 102.0 MMOL/L (98-107); CREATININE FOR GFR 1.37 MG/DL (0.70-1.30); GLOMERULAR FILTRATION RATE 54.8 (>42); POTASSIUM SERUM 4.6 MMOL/L (3.5-5.1); SODIUM LEVEL 138.0 MMOL/L (136-145)
== END ==
LOC: M LAB 07:54
PROVIDERS: ATTEND Physician Assistant
DX: I11.9 Hypertensive heart disease without heart failure (principal)